=== PATIENT | female | born 1995 | race Native Hawaiian/Other Pacific Islander ===

== ENCOUNTER 2020-08-24 17:24 | Emergency (ER) | payer MEDICARE, MEDICAID, SELFPAY ==
[2020-08-24 17:41] VITALS: BP 141/75; PULSE 92; RESP 18; TEMP 37; O2SAT 98; BMI 41.9
--- NOTE | 2020-08-24 17:46 | DI.RAD.S_ITS ---
PROCEDURE: XR CHEST 1V INDICATIONS: chest pain TECHNIQUE: One view of the chest was acquired. COMPARISON: None. FINDINGS: Surgical changes and devices: None. Lungs and pleura: Lung volumes are decreased bilaterally. Mild streaky bibasilar opacities likely representing atelectasis. No focal consolidation. No pleural effusions or pneumothorax. Mediastinum: Mediastinal contours appear normal. Heart size is normal. Bones and chest wall: No suspicious bony lesions. Overlying soft tissues appear unremarkable. IMPRESSION: Low lung volumes with streaky bibasilar opacities favored to represent atelectasis. Consider dedicated upright PA and lateral views of the chest to confirm when patient is able. Otherwise, no acute cardiopulmonary abnormality seen. No focal consolidations. Dictated by: Emanuel Saenz M.D. on 08/24/2020 at 18:56 Approved by: Emanuel Saenz M.D. on 08/24/2020 at 18:56
[2020-08-24 18:31] LABS: Alanine Aminotransferase 17 IU/L (<35); Albumin 4.2 g/dL (3.5-5.0); Albumin Globulin Ratio 1.2 (1.0-2.8); Alkaline Phosphatase 63 U/L (38-126); Aspartate Aminotransferase 21 IU/L (14-36); BUN Creatinine Ratio 23.3 (6-22); Bilirubin Total 0.3 mg/dL (0.2-1.3); Blood Urea Nitrogen 14 mg/dL (7-17); Calcium 9.4 mg/dL (8.4-10.2); Carbon Dioxide 27 mmol/L (22-32); Chloride 103 mmol/L (98-107); Creatine Kinase 58 U/L (30-135); Estimated Glomerular Filt Rate > 60.0 mL/min (>60); Globulin 3.5 g/dL (1.7-4.1); Glucose 98 mg/dL (70-100); HEMOLYSIS < 15 (0-50); Lipase 73 U/L (23-300); Potassium 3.8 mmol/L (3.4-5.1); Sodium 138 mmol/L (137-145); Total Protein 7.7 g/dL (6.3-8.2)
[2020-08-24 18:42] LABS: Troponin I < 0.012 ng/mL (0.01-0.034)
[2020-08-24 18:47] LABS: Hemoglobin 13.3 g/dL (12.0-16.0); Mean Corpuscular HGB Conc 33.2 % (30-36); Mean Corpuscular Hemoglobin 28.9 PG (26-34); Mean Corpuscular Volume 87.1 fL (80-100); Platelet Count 275 X10^3/uL (150-400); Red Blood Cell Count 4.59 X10^6/uL (4.0-5.2); Red Cell Distribution Width 14.4 % (11.6-14.8)
[2020-08-24 18:48] LABS: Add Manual Diff / Slide Review YES
[2020-08-24 19:18] LABS: Neutrophils Absolute Manual 12600 /uL (3000-5900); Platelet Estimate Adequate on smear; RBC Morphology Normal Morphology; Total Cells Counted 100
[2020-08-24 20:34] VITALS: BP 110/67; PULSE 86; TEMP 36.8; O2SAT 100
[2020-08-24 20:42] LABS: COVID19 -Nasal RAPID Negative (Negative)
--- NOTE | 2020-08-24 20:58 | PC.NURSE ---
Patient with cough, states she had a couple coughs last night but frequency increased this AM at approximately 0400. Received her first covid vaccine shot at 1000 and after developed chest pain. States chest pain is 6/10, aching, midsternal radiating across chest, worsened by cough. Mentioned her daughter recently had pneumonia.
--- NOTE | 2020-08-24 21:11 | ED_ITS ---
HPI - URI/Sore Throat General Chief Complaint: Chest Pain Stated Complaint: not feelling well after Covid Vaccine today Time Seen by Provider: 08/24/20 20:56 Source: patient Mode of arrival: Ambulatory Limitations: no limitations History of Present Illness HPI Narrative: Patient complains of cough cold congestion runny nose reproducible chest pain on coughing starting around 3:00 p.m. today. At noon today she states she had the 1st vaccine for COVID. [employer]. Denies any symptoms prior to the vaccine today. No recent illness otherwise. Complaint: fever, cough, rhinorrhea, nasal congestion and other (Chest pain/body aches fever and chills) Related Data Home Medications Medication Instructions Recorded Confirmed No Known Home Medications 08/24/20 08/24/20 Allergies Allergy/AdvReac Type Severity Reaction Status Date / Time No Known Drug Allergies Allergy Verified 08/24/20 18:03 Review of Systems Review of Systems Narrative: GENERAL: Complaint chills, fatigue, malaise, fever, sweats. HEENT: Complains runny nose and sinus pain, denies ear pain, sore throat RESPIRATORY: Denies dyspnea, complaint cough CARDIOVASCULAR: Denies chest pain, palpitations GASTROINTESTINAL: Denies nausea, vomiting, abdominal pain : Denies dysuria, frequency, hematuria MUSCULOSKELETAL: Complaint muscle or bony pain SKIN: Denies rash, skin lesions NEUROLOGIC: Denies weakness, numbness ROS Unobtainable: All systems reviewed & are unremarkable except as noted in HPI and below Patient History Social History Smoking Status: Unknown if ever smoked Smoking Status: Unknown if ever smoked alcohol intake frequency: holidays/special occasions only Substance Use Type: does not use Exam Narrative Exam Narrative: GENERAL: in no distress, not toxic not dyspneic HEAD: Normocephalic. EYES: Pupils equal round No scleral icterus. No injection no discharge ENT: Mucous membranes moist. NECK: Trachea midline. CARDIOVASCULAR: Regular rate and rhythm without murmurs, chest pain substernal with coughing RESPIRATORY: Clear to auscultation. Breath sounds equal bilaterally. No wheezes, rales, or rhonchi. GASTROINTESTINAL: Abdomen soft, non-tender EXTREMITIES: No gross deformities. BACK: No flank tenderness. NEURO: AOx4. SKIN: Warm and dry PSYCH: Not anxious, is cooperative Initial Vital Signs Initial Vital Signs: Vital Signs Temperature 98.6 F 08/24/20 17:41 Pulse Rate 92 H 08/24/20 17:41 Respiratory Rate 18 08/24/20 17:41 Blood Pressure 141/75 H 08/24/20 17:41 Pulse Oximetry 98 08/24/20 17:41 Course Course Course Narrative: Patient improved during course of stay. No intervention required other than laboratory studies Orders Ordered: ED Orders 08/24/20 19:53 COVID19 -Nasal swab/Pre-Proc Stat Reevaluation(s) Reevaluation #1: Patient feels much better. Desires discharge home. She does not want any further treatment or intervention. She feels much better and desires discharge Time: 23:02 Vital Signs Vital signs: Vital Signs - 8 hr 08/24/20 20:34 08/24/20 23:37 Temperature 98.2 F Pulse Rate 86 88 Respiratory Rate 16 Blood Pressure 110/67 114/70 Pulse Oximetry 100 100 MDM - URI/Sore Throat Differential Diagnosis Differential diagnosis: Likely other (Medication reaction/vaccine reaction) Lab Data Attestation: I reviewed the patient's lab results. Result diagrams: 08/24/20 18:15 08/24/20 18:15 Labs: Lab Results 08/24/20 08/24/20 08/24/20 Range/Units 18:15 18:15 18:15 WBC 15.0 H (4.5-11.0) X10^3/uL RBC 4.59 (4.0-5.2) X10^6/uL Hgb 13.3 (12.0-16.0) g/dL Hct 40.0 (36-46) % MCV 87.1 (80-100) fL MCH 28.9 (26-34) PG MCHC 33.2 (30-36) % RDW 14.4 (11.6-14.8) % Plt Count 275 (150-400) X10^3/uL Neut % (Auto) Not Reportable Lymph % (Auto) Not Reportable Slope % (Auto) Not Reportable Eos % (Auto) Not Reportable Baso % (Auto) Not Reportable Lymph # (Auto) Not Reportable [place] # (Auto) Not Reportable Baso # (Auto) Not Reportable Total Counted 100 Seg Neutrophils % 84.0 H (38-70) % Lymphocytes % (Manual) 11.0 L (25-45) % Monocytes % (Manual) 5.0 (2-11) % Neutrophils # (Manual) 38027 H (4227-9138) /uL Platelet Estimate Adequate on smear RBC Morphology Normal morphology Sodium 138 (137-145) mmol/L Potassium 3.8 (3.4-5.1) mmol/L Chloride 103 (98-107) mmol/L Carbon Dioxide 27 (22-32) mmol/L BUN 14 (7-17) mg/dL Creatinine 0.60 (0.52-1.04) mg/dL Estimated GFR > 60.0 (>60) mL/min BUN/Creatinine Ratio 23.3 H (6-22) Glucose 98 (70-100) mg/dL Calcium 9.4 (8.4-10.2) mg/dL Total Bilirubin 0.3 (0.2-1.3) mg/dL AST 21 (14-36) IU/L ALT 17 (<35) IU/L Alkaline Phosphatase 63 (38-126) U/L Total Creatine Kinase 58 (30-135) U/L CK-MB (CK-2) TNP CK-MB (CK-2) Rel Index TNP Troponin I < 0.012 (0.01-0.034) ng/mL Total Protein 7.7 (6.3-8.2) g/dL Albumin 4.2 (3.5-5.0) g/dL Globulin 3.5 (1.7-4.1) g/dL Albumin/Globulin Ratio 1.2 (1.0-2.8) Lipase 73 (23-300) U/L Serum , Qual Negative (Negative) SARS-CoV-2 (PCR) (Negative) 08/24/20 Range/Units 19:53 WBC (4.5-11.0) X10^3/uL RBC (4.0-5.2) X10^6/uL Hgb (12.0-16.0) g/dL Hct (36-46) % MCV (80-100) fL MCH (26-34) PG MCHC (30-36) % RDW (11.6-14.8) % Plt Count (150-400) X10^3/uL Neut % (Auto) Lymph % (Auto) [place] % (Auto) Eos % (Auto) Baso % (Auto) Lymph # (Auto) [place] # (Auto) Baso # (Auto) Total Counted Seg Neutrophils % (38-70) % Lymphocytes % (Manual) (25-45) % Monocytes % (Manual) (2-11) % Neutrophils # (Manual) (5247-1353) /uL Platelet Estimate RBC Morphology Sodium (137-145) mmol/L Potassium (3.4-5.1) mmol/L Chloride (98-107) mmol/L Carbon Dioxide (22-32) mmol/L BUN (7-17) mg/dL Creatinine (0.52-1.04) mg/dL Estimated GFR (>60) mL/min BUN/Creatinine Ratio (6-22) Glucose (70-100) mg/dL Calcium (8.4-10.2) mg/dL Total Bilirubin (0.2-1.3) mg/dL AST (14-36) IU/L ALT (<35) IU/L Alkaline Phosphatase (38-126) U/L Total Creatine Kinase (30-135) U/L CK-MB (CK-2) CK-MB (CK-2) Rel Index Troponin I (0.01-0.034) ng/mL Total Protein (6.3-8.2) g/dL Albumin (3.5-5.0) g/dL Globulin (1.7-4.1) g/dL Albumin/Globulin Ratio (1.0-2.8) Lipase (23-300) U/L Serum , Qual (Negative) SARS-CoV-2 (PCR) Negative (Negative) Imaging Data Chest x-ray: Radiologist's Impression: [address] [id number] ReportSigned Patient: Jose Epstein EMR#: [id number]: 1995Acct:[id number]/Sex: 25 / FDate of Service: 08/24/20Loc: EDAccession Number: [id number] Procedure: XR chest 1V Ordering Provider: Armaan Hsu D.O. PROCEDURE: XR CHEST 1V INDICATIONS: chest pain TECHNIQUE: One view of the chest was acquired. COMPARISON: None. FINDINGS: Surgical changes and devices: None. Lungs and pleura: Lung volumes are decreased bilaterally. Mild streaky bibasilar opacities likely representing atelectasis. No focal consolidation. No pleural effusions or pneumothorax. Mediastinum: Mediastinal contours appear normal. Heart size is normal. Bones and chest wall: No suspicious bony lesions. Overlying soft tissues appear unremarkable. IMPRESSION: Low lung volumes with streaky bibasilar opacities favored to represent atelectasis. Consider dedicated upright PA and lateral views of the chest to confirm when patient is able. Otherwise, no acute cardiopulmonary abnormality seen. No focal consolidations. Dictated by: Emanuel Saenz M.D. on 08/24/2020 at 18:56 Approved by: Emanuel Saenz M.D. on 08/24/2020 at 18:56 ECG Data Attestation: I personally reviewed and interpreted this ECG as follows: Interpretation: Normal sinus rhythm rate [address] elevation or depression MDM Narrative Medical decision making narrative: Appropriate for discharge home. Laboratory studies as well as exam reassuring. Reactions to vaccines not uncommon during this pandemic. Discharge Plan Departure Patient Disposition: Home Clinical Impression: Post-vaccination reaction Qualifiers: Encounter type: initial encounter Qualified Code(s): T88.1XXA - Other complic ations following immunization, not elsewhere classified, initial encounter Instructions: Acetaminophen May Reduce Vaccination Response Activity Restrictions/Additional Instructions: Return if worse if any questions concerns. See family doctor in a week for recheck. May continue ibuprofen or Tylenol for pain aches fevers chills. Call provided referral phone number if he needed family doctor. Prescriptions: No Action No Known Home Medications RF: 0 Referrals: [facility] Resources [Outside] Stand Alone Forms: Work Release Note
[2020-08-24 21:22] LABS: Pregnancy Test Serum,Qual Negative (Negative)
[2020-08-24 23:37] VITALS: BP 114/70; PULSE 88; RESP 16; O2SAT 100
== END 2020-08-24 23:38 | disposition home or self-care (01) ==
PROVIDERS: Emergency Medicine; Emergency Provider Emergency Medicine
DX: R07.9 Chest pain, unspecified (principal); R50.9 Fever, unspecified; Z20.822 Contact with and (suspected) exposure to COVID-19; T88.1XXA Other complications following immunization, not elsewhere classified, initial encounter
CPT/HCPCS: 36415; 71045; 80053; 82550; 83690; 84484; 84703; 85007; 85025; 87635; 93005; 99283; 99284; C9803

== ENCOUNTER 2020-08-25 22:23 | Emergency (ER) | payer MEDICARE, MEDICAID, SELFPAY ==
--- NOTE | 2020-08-25 22:27 | ED_ITS ---
HPI - Abdominal Pain General Chief Complaint: Abdominal Pain Stated Complaint: abd pain Time Seen by Provider: 08/25/20 22:27 Source: patient and family Mode of arrival: Ambulatory Limitations: no limitations History of Present Illness HPI narrative: 25-year-old female nonsmoker with no chronic medical problems presents with family in the chief complaint of gradually worsening periumbilical pain over the course of the day. She states it is sharp and stabbing it seems to be made worse when she moves and improves with rest. She denies any fever or chills. She denies any vaginal bleeding or discharge. She denies any dysuria, frequency or urgency. She denies constipation or diarrhea. She states that she just had her COVID vaccination and was seen earlier in the day for symptoms thought to be related to this vaccination. MD complaint: abdominal pain Onset (ago): hour(s) Pain Consistency: constant Location: periumbilical Severity: moderate Quality: stabbing and sharp Radiation: none Relieving factors: rest Exacerbating factors: movement Associated symptoms: nausea and vomiting Related Data Patient : No Previous Rx's Medication Instructions Recorded hydrocodone-acetaminophen 1 tab PO Q4-6H PRN #10 tab 08/26/20 ondansetron 4 mg PO TID-QID PRN #10 tab 08/26/20 Allergies Allergy/AdvReac Type Severity Reaction Status Date / Time No Known Drug Allergies Allergy Verified 08/24/20 18:03 Review of Systems Constitutional Constitutional: Denies chills, Denies fatigue, Denies fever(s), Denies frequent falls, Denies lethargy and Denies weakness Eyes Eyes: Denies change in vision, Denies eye discharge, Denies irritation and Denies loss of vision ENT Ears, Nose, Mouth, and Throat: Denies change in voice, Denies dizziness, Denies neck pain, Denies sore throat and Denies throat swelling Cardiovascular Cardiovascular: Denies chest pain, Denies irregular heart rhythm, Denies lightheadedness, Denies palpitations, Denies dyspnea, Denies dyspnea on exertion and Denies orthopnea Respiratory Respiratory: Denies cough, Denies dyspnea, Denies dyspnea on exertion and Denies wheezing Gastrointestinal Gastrointestinal: Reports abdominal pain, Denies change in bowel habits, Denies diarrhea, Reports nausea and Reports vomiting Musculoskeletal Musculoskeletal: Denies neck pain and Denies numbness Integumentary/Breasts Skin/Breast: Denies pruritus, Denies erythema, Denies rash and Denies wounds Neurologic Neurologic: Denies behavioral changes, Denies confusion, Denies dizziness, Den ies frequent falls, Denies loss of vision, Denies numbness and Denies weakness Psychiatric Psychiatric: Denies anxiety, Denies behavioral changes, Denies confusion, Denies depression, Denies homicidal ideation and Denies suicidal ideation Endocrine Endocrine: Denies fatigue, Denies flushing and Denies palpitations Hematologic/Lymphatic Hematologic/Lymphatic: Denies easy bruising Allergic/Immunologic Allergic/Immunologic: Denies urticaria, Denies throat swelling and Denies wheezing Patient History Social History Smoking Status: Unknown if ever smoked Smoking Status: Unknown if ever smoked alcohol intake frequency: holidays/special occasions only Substance Use Type: does not use Exam Narrative Exam Narrative: GENERAL: [25] year old patient appears stated age. Well- nourished, well-developed patient, in mild distress. Tearful, crying, anxious HEAD: Atraumatic. Normocephalic. EYES: Pupils equal round and reactive. Extraocular motions intact. No scleral icterus. No injection or drainage. ENT: Nose without bleeding, purulent drainage. Throat without erythema, tonsillar hypertrophy or exudate. Airway patent. NECK: Trachea midline. Non tender CARDIOVASCULAR: Regular rate and rhythm without murmurs, gallops, or rubs. RESPIRATORY: Clear to auscultation. Breath sounds equal bilaterally. No wheezes, rales, or rhonchi. GASTROINTESTINAL: Abdomen soft, general tenderness, nondistended. Bowel sounds present EXTREMITIES: No edema or joint tenderness. BACK: Nontender without deformity or crepitance. No flank tenderness. NEURO: AOx3. SKIN: No rash or erythema of visible areas Initial Vital Signs Initial Vital Signs: Vital Signs Temperature 97.8 F 08/25/20 22:34 Pulse Rate 89 08/25/20 22:34 Respiratory Rate 24 08/25/20 22:34 Blood Pressure 138/85 08/25/20 22:34 Pulse Oximetry 99 08/25/20 22:34 Course Orders Ordered: ED Orders 08/25/20 22:40 Complete Blood Count AUTO DIFF Stat Comprehensive Metabolic Panel Stat Lipase Stat 08/25/20 23:41 CT abdomen pelvis w con Stat Discontinued Medications Hydrocodone Bitart/Acetaminophen (Hydrocodone/Acet 5/325 Prepack) 1 bottle MISC SEEINSTR ONE Stop: 08/26/20 01:13 Last Admin: 08/26/20 01:39 Dose: 1 bottle Documented by: ARNAV Hydromorphone HCl (Hydromorphone 0.5 Mg Inj) 0.5 mg IV NOW ONE Stop: 08/25/20 22:34 Last Admin: 08/25/20 22:47 Dose: 0.5 mg Documented by: ARNAV Sodium Chloride (Normal Saline 0.9%) 1,000 mls @ 1,000 mls/hr IV BOLUS ONE Stop: 08/25/20 23:32 Last Infusion: 08/26/20 01:01 Dose: 0 mls/hr Documented by: Admin: 08/25/20 22:47 Dose: 1,000 mls/hr Documented by: ARNAV Ondansetron HCl (Ondansetron 4 Mg/2 Ml Inj) 4 mg IV Q4HR PRN PRN Reason: Nausea And Vomiting Last Admin: 08/25/20 22:47 Dose: 4 mg Documented by: ARNAV Ondansetron HCl (Ondansetron 4 Mg Odt Prepack) 1 bottle [facility] [place] Stop: 08/26/20 01:13 Last Admin: 08/26/20 01:39 Dose: 1 bottle Documented by: ARNAV Reevaluation(s) Reevaluation #1: patient resting and completely pain free soon after arrival Consultations Consultation #1: Discussed with on-call surgery. We talked about history, physical exam, labs and imaging. We share the opinion that she likely passed a stone given her presentation, subtle change in labs and what is seen on the CT scan. He recommends discharge, pain control, follow-up, and return precautions Vital Signs Vital signs: Vital Signs - 8 hr 08/25/20 22:34 08/26/20 01:41 Temperature 97.8 F Pulse Rate 89 64 Respiratory Rate 24 20 Blood Pressure 138/85 151/84 H Pulse Oximetry 99 99 MDM - Abdominal Pain Lab Data Result diagrams: 08/25/20 22:40 08/25/20 22:40 Labs: Lab Results 08/25/20 08/25/20 Range/Units 22:40 22:40 WBC 11.3 H (4.5-11.0) X10^3/uL RBC 4.76 (4.0-5.2) X10^6/uL Hgb 13.5 (12.0-16.0) g/dL Hct 41.2 (36-46) % MCV 86.5 (80-100) fL MCH 28.3 (26-34) PG MCHC 32.7 (30-36) % RDW 14.3 (11.6-14.8) % Plt Count 257 (150-400) X10^3/uL Neut % (Auto) 78.5 H (50-75) % Lymph % (Auto) 9.7 L (25-40) % [place] % (Auto) 10.6 (3-14) % Eos % (Auto) 0.9 L (2-4) % Baso % (Auto) 0.3 (0-2) % Neut # (Auto) 8900 H (9140-1896) /uL Lymph # (Auto) 1100 (0486-1031) /uL [place] # (Auto) 1200 H (0-900) /uL Eos # (Auto) 100 (0-450) /uL Baso # (Auto) 0 (0-100) /uL Sodium 138 (137-145) mmol/L Potassium 3.7 (3.4-5.1) mmol/L Chloride 105 (98-107) mmol/L Carbon Dioxide 25 (22-32) mmol/L BUN 14 (7-17) mg/dL Creatinine 0.62 (0.52-1.04) mg/dL Estimated GFR > 60.0 (>60) mL/min BUN/Creatinine Ratio 22.6 H (6-22) Glucose 107 H (70-100) mg/dL Calcium 9.1 (8.4-10.2) mg/dL Total Bilirubin 0.7 (0.2-1.3) mg/dL AST 182 H (14-36) IU/L ALT 68 H (<35) IU/L Alkaline Phosphatase 97 (38-126) U/L Total Protein 7.6 (6.3-8.2) g/dL Albumin 4.1 (3.5-5.0) g/dL Globulin 3.5 (1.7-4.1) g/dL Albumin/Globulin Ratio 1.2 (1.0-2.8) Lipase 112 D (23-300) U/L Point of care testing: Point of Care Testing Test Results Negative Urine Dip Bedside Urine Glucose Negative Bedside Urine Bilirubin + 1 Bedside Urine Ketone - Negative Urine Specific Lottie 1.030 Bedside Urine Occult Blood - Negative Bedside Urine pH 6.0 Bedside Urine Protein - Negative Bedside Urine Urobilinogen 1+ 2mg Bedside Urine Nitrite - Negative Bedside Urine Leukocytes - Negative Esterase Discharge Plan Departure Patient Disposition: Home Clinical Impression: Acute epigastric pain Instructions: DI for General Gallbladder Conditions Activity Restrictions/Additional Instructions: *You have been diagnosed with [upper abdominal pain, likely due to your gallbladder. Labs and imaging would suggest that you are okay for discharge but will need to follow closely *What to do: *Please continue to take your regular medications as directed. [x ] New medication prescriptions sent to your pharmacy: [[facility]] [ ] New medication written as a paper prescription [ ] No new medications given Avoid alcohol, spicy foods, fatty foods and dairy products. *Please follow up with your primary care provider in 2-3 days, call for an appointment. Let them know you were seen in the Emergency Department and that we ask that you be seen in follow up. We will electronically transmit a record of today's note if your PCP is in our system *If you do not have a primary care provider please contact the [facility] Resource line at [phone]. They will ask some questions about your medical history and help get you set up with a doctor in the community. *Return to Emergency Department if you should have any new, worsening or concerning symptoms, such as [fever greater than 101 F, shaking chills, worsening pain, persistent vomiting or other bothersome symptoms] Prescriptions: New hydrocodone-acetaminophen 5-325 mg tablet 1 tab PO Q4-6H PRN (Reason: pain) Qty: 10 RF: 0 ondansetron 4 mg tablet,disintegrating 4 mg PO TID-QID PRN (Reason: nausea and vomiting) Qty: 10 RF: 0 Referrals: Renzo Adams MD [Physician] -
[2020-08-25 22:34] VITALS: BP 138/85; PULSE 89; RESP 24; TEMP 36.6; O2SAT 99; BMI 42.4
[2020-08-25] MEDS: SODIUM CHLORIDE 0.9% 1,000 ML 1000 ML IV (22:47)
[2020-08-25] MEDS: HYDROMORPHONE 0.5 MG INJ IV (22:47)
[2020-08-25] MEDS: ONDANSETRON 4 MG/2 ML INJ IV (22:47)
[2020-08-25 22:59] LABS: Add Manual Diff / Slide Review NO; Basophils Absolute Auto 0 /uL (0-100); Basophils Percent Auto 0.3 % (0-2); Eosinophils Absolute Auto 100 /uL (0-450); Eosinophils Percent Auto 0.9 % (2-4); Hematocrit 41.2 % (36-46); Hemoglobin 13.5 g/dL (12.0-16.0); Lymphocytes Absolute Auto 1100 /uL (1100-4500); Lymphocytes Percent Auto 9.7 % (25-40); Mean Corpuscular HGB Conc 32.7 % (30-36); Mean Corpuscular Hemoglobin 28.3 PG (26-34); Mean Corpuscular Volume 86.5 fL (80-100); Monocytes Absolute Auto 1200 /uL (0-900); Monocytes Percent Auto 10.6 % (3-14); Neutrophils Absolute Auto 8900 /uL (1500-7000); Neutrophils Percent Auto 78.5 % (50-75); Platelet Count 257 X10^3/uL (150-400); Red Blood Cell Count 4.76 X10^6/uL (4.0-5.2); Red Cell Distribution Width 14.3 % (11.6-14.8); White Blood Cell Count 11.3 X10^3/uL (4.5-11.0)
[2020-08-25 23:03] LABS: Alanine Aminotransferase 68 IU/L (<35); Albumin 4.1 g/dL (3.5-5.0); Albumin Globulin Ratio 1.2 (1.0-2.8); Alkaline Phosphatase 97 U/L (38-126); Aspartate Aminotransferase 182 IU/L (14-36); BUN Creatinine Ratio 22.6 (6-22); Bilirubin Total 0.7 mg/dL (0.2-1.3); Blood Urea Nitrogen 14 mg/dL (7-17); Calcium 9.1 mg/dL (8.4-10.2); Carbon Dioxide 25 mmol/L (22-32); Chloride 105 mmol/L (98-107); Estimated Glomerular Filt Rate > 60.0 mL/min (>60); Globulin 3.5 g/dL (1.7-4.1); Glucose 107 mg/dL (70-100); HEMOLYSIS < 15 (0-50); Lipase 112 U/L (23-300); Potassium 3.7 mmol/L (3.4-5.1); Sodium 138 mmol/L (137-145); Total Protein 7.6 g/dL (6.3-8.2)
--- NOTE | 2020-08-25 23:41 | DI.CT.S_ITS ---
PROCEDURE: CT ABDOMEN PELVIS W CON INDICATIONS: severe abdominal pain TECHNIQUE: After the administration of intravenous contrast, 5 mm thick sections acquired from the diaphragm to the symphysis. 5 mm coronal and sagittal reformats were acquired. For radiation dose reduction, the following was used: automated exposure control, adjustment of mA and/or kV according to patient size. COMPARISON: None. FINDINGS: Image quality: Excellent. ABDOMEN: Lung bases: Lung bases are clear. Heart size is normal. Solid organs: Liver is normal in size and enhancement. Gallbladder is distended with mild dilatation of the common bile duct. No CT evidence for obstructing stone or mass. No significant pericholecystic inflammatory changes.. Remainder of the biliary system is non dilated. Pancreas enhances normally. Spleen is normal in size and enhancement. No adrenal nodules. Kidneys demonstrate normal size and enhancement, without hydronephrosis. Peritoneum and bowel: Bowel loops demonstrate normal wall thickness and caliber. No free fluid or air. Normal appendix Nodes and vessels: No retroperitoneal or mesenteric adenopathy by size criteria. Aorta and inferior vena cava are normal in size. Miscellaneous: Small fat containing umbilical hernia without acute inflammation. PELVIS: Genitourinary: Urinary bladder wall thickness appears normal for degree of distension. Miscellaneous: No inguinal hernias. No pelvic adenopathy. Bones: No suspicious bony lesions. No acute vertebral body compression fractures. IMPRESSION: Mild distention of the gallbladder with prominence of the common bile duct. No evidence for obstructing stone or mass lesion. Further evaluation with ultrasound can be considered. Otherwise, unremarkable CT evaluation of the abdomen and pelvis. No significant discrepancy with the slot shift manager radiology preliminary report. Dictated by: Emanuel Saenz M.D. on 08/26/2020 at 7:15 Approved by: Emanuel Saenz M.D. on 08/26/2020 at 7:19
[2020-08-26] MEDS: ONDANSETRON 4 MG ODT PREPACK 1 BOTTLE MISC (01:39)
[2020-08-26] MEDS: HYDROCODONE/ACET 5/325 PREPACK 1 BOTTLE MISC (01:39)
[2020-08-26 01:41] VITALS: BP 151/84; PULSE 64; RESP 20; O2SAT 99
== END 2020-08-26 01:43 | disposition home or self-care (01) ==
PROVIDERS: Emergency Provider Emergency Medicine
DX: R10.13 Epigastric pain (principal); R11.2 Nausea with vomiting, unspecified
CPT/HCPCS: 36415; 74177; 80053; 81003; 81025; 83690; 85025; 96361; 96374; 96375; 99284; J1170; J2405; Q9967

== ENCOUNTER 2020-10-05 17:34 | Emergency (ER) | payer OTHER, MEDICAID, SELFPAY ==
[2020-10-05 17:35] VITALS: BP 171/88; PULSE 76; RESP 16; TEMP 36.7; O2SAT 98; BMI 40.3
[2020-10-05 18:18] LABS: COVID19 -Nasal RAPID Negative (Negative)
--- NOTE | 2020-10-05 18:43 | ED.SOB ---
HPI - SOB/Dyspnea General Chief Complaint: Shortness of Breath/Dyspnea Stated Complaint: headaches for 3 days, short of breath Time Seen by Provider: 10/05/20 18:03 Source: patient Mode of arrival: Ambulatory Limitations: no limitations History of Present Illness HPI Narrative: 25-year-old female nonsmoker with noncontributory medical history presents with episodes of headaches over the past few weeks. she states that her headaches are largely frontal, sharp and stabbing, seem to be made worse by motion as well as bright lights and loud noise. She has had no fever chills but does admit to significant nasal congestion, sneezing. She has had no fever chills. She denies any neck pain or body aches. She denies any chest pain or shortness of breath. She has had no nausea, vomiting or diarrhea. Related Data Previous Rx's Medication Instructions Recorded hydrocodone 5 mg-acetaminophen 325 1 tab PO Q4-6H PRN #10 tab 08/26/20 mg tablet ondansetron 4 mg disintegrating 4 mg PO TID-QID PRN #10 tab 08/26/20 tablet hydrocodone 5 mg-acetaminophen 325 1 tab PO Q6H PRN #10 tab 08/30/20 mg tablet ketorolac 10 mg tablet 10 mg PO Q6H PRN #14 tab 10/05/20 Allergies Allergy/AdvReac Type Severity Reaction Status Date / Time No Known Drug Allergies Allergy Verified 10/05/20 17:46 Review of Systems Review of Systems Narrative: GENERAL: See HPI HEENT: Denies sinus pain, ear pain, sore throat, difficulty swallowing, dizziness. RESPIRATORY: Denies dyspnea, cough, wheezing, hemoptysis, sputum. CARDIOVASCULAR: Denies chest pain, palpitations, orthopnea, edema, GASTROINTESTINAL: Denies nausea, vomiting, abdominal pain, diarrhea, constipation, melena. : Denies dysuria, frequency, incontinence, hematuria, urinary retention. MUSCULOSKELETAL: denies weakness, joint pain, or bony pain SKIN: Denies rash, skin lesions, or other NEUROLOGIC: Denies weakness, headache, numbness, change in speech, confusion, seizures, incoordination. PSYCHIATRIC: No concerning psychosocial issues. 12 point review of systems is negative except for those stated above Patient History Social History Smoking Status: Unknown if ever smoked Smoking Status: Unknown if ever smoked alcohol intake frequency: holidays/special occasions only Substance Use Type: marijuana Exam Narrative Exam Narrative: GENERAL: [25] year old patient appears stated age. Well-developed patient, in mild distress. HEAD: Atraumatic. Normocephalic. Frontal sinuses tender to palpation, no change with transillumination EYES: Pupils equal round and reactive. Extraocular motions intact. No scleral icterus. No injection or drainage. ENT: Nose without bleeding, purulent drainage. Throat without erythema, tonsillar hypertrophy or exudate. Airway patent. NECK: Trachea midline. Non tender. No meningeal signs CARDIOVASCULAR: Regular rate and rhythm without murmurs, gallops, or rubs. RESPIRATORY: Clear to auscultation. Breath sounds equal bilaterally. No wheezes, rales, or rhonchi. GASTROINTESTINAL: Abdomen soft, non-tender, nondistended. EXTREMITIES: No edema or joint tenderness. BACK: Nontender without deformity or crepitance. No flank tenderness. NEURO: AOx3. SKIN: No rash or erythema of visible areas Initial Vital Signs Initial Vital Signs: Vital Signs Temperature 98.1 F 10/05/20 17:35 Pulse Rate 76 10/05/20 17:35 Respiratory Rate 16 10/05/20 17:35 Blood Pressure 171/88 H 10/05/20 17:35 Pulse Oximetry 98 10/05/20 17:35 Course Orders Ordered: ED Orders 10/05/20 18:41 Complete Blood Count AUTO DIFF Stat Comprehensive Metabolic Panel Stat Lactate (Lactic Acid) Stat Magnesium Stat NT-proBNP (BNP-Adult 18+) Stat Procalcitonin Stat Troponin & CK Cardiac Panel Stat 10/05/20 18:43 Consult to Respiratory Therapy Evaluate & Treat 10/05/20 18:44 XR chest 1V Stat 10/05/20 18:51 D Dimer Stat 10/05/20 19:19 Blood Culture Stat 10/05/20 19:20 EKG-12 Lead Stat Discontinued Medications Dexamethasone (Dexamethasone 10 Mg/Ml Vial) 10 mg IV NOW ONE Stop: 10/05/20 19:14 Last Admin: 10/05/20 20:26 Dose: 10 mg Documented by: [email or web address] Diphenhydramine HCl (Diphenhydramine 50 Mg/Ml Vial) 25 mg IV NOW ONE Stop: 10/05/20 19:14 Last Admin: 10/05/20 20:27 Dose: 25 mg Documented by: [email or web address] Sodium Chloride (Normal Saline 0.9%) 1,000 mls @ 1,000 mls/hr IV BOLUS ONE Stop: 10/05/20 19:42 Last Infusion: 10/05/20 20:55 Dose: 0 mls/hr Documented by: Admin: 10/05/20 18:54 Dose: 1,000 mls/hr Documented by: KAYKAY Ketorolac Tromethamine (Ketorolac 30 Mg/Ml Vial) 15 mg IV NOW ONE Stop: 10/05/20 19:14 Last Admin: 10/05/20 20:27 Dose: 15 mg Documented by: CTRLAMAR Vital Signs Vital signs: Vital Signs - 8 hr 10/05/20 20:54 Pulse Rate 77 Respiratory Rate 16 Blood Pressure 142/78 H Pulse Oximetry 97 MDM - SOB/Dyspnea Lab Data Result diagrams: 10/05/20 18:41 10/05/20 18:41 Labs: Lab Results 10/05/20 10/05/20 10/05/20 Range/Units 17:39 18:41 18:41 WBC 7.9 (4.5-11.0) X10^3/uL RBC 4.67 (4.0-5.2) X10^6/uL Hgb 13.5 (12.0-16.0) g/dL Hct 41.0 (36-46) % MCV 87.8 (80-100) fL MCH 28.8 (26-34) PG MCHC 32.8 (30-36) % RDW 13.7 (11.6-14.8) % Plt Count 279 (150-400) X10^3/uL Neut % (Auto) 66.5 (50-75) % Lymph % (Auto) 26.1 (25-40) % [place] % (Auto) 5.8 (3-14) % Eos % (Auto) 1.1 L (2-4) % Baso % (Auto) 0.5 (0-2) % Neut # (Auto) 5200 (5972-0834) /uL Lymph # (Auto) 2100 (0492-6371) /uL [place] # (Auto) 500 (0-900) /uL Eos # (Auto) 100 (0-450) /uL Baso # (Auto) 0 (0-100) /uL D-Dimer (<230) ng/mL Sodium (137-145) mmol/L Potassium (3.4-5.1) mmol/L Chloride (98-107) mmol/L Carbon Dioxide (22-32) mmol/L BUN (7-17) mg/dL Creatinine (0.52-1.04) mg/dL Estimated GFR (>60) mL/min BUN/Creatinine Ratio (6-22) Glucose (70-100) mg/dL Lactate (0.7-2.1) mmol/L Calcium (8.4-10.2) mg/dL Magnesium 2.0 (1.6-2.3) mg/dL Total Bilirubin (0.2-1.3) mg/dL AST (14-36) IU/L ALT (<35) IU/L Alkaline Phosphatase (38-126) U/L Total Creatine Kinase 53 (30-135) U/L CK-MB (CK-2) TNP CK-MB (CK-2) Rel Index TNP Troponin I < 0.012 (0.01-0.034) ng/mL NT-Pro-B Natriuret Pep 76 (<125) pg/mL Total Protein (6.3-8.2) g/dL Albumin (3.5-5.0) g/dL Globulin (1.7-4.1) g/dL Albumin/Globulin Ratio (1.0-2.8) Procalcitonin 0.04 (<0.5) ng/mL SARS-CoV-2 (PCR) Negative (Negative) 10/05/20 10/05/20 10/05/20 Range/Units 18:41 18:41 18:51 WBC (4.5-11.0) X10^3/uL RBC (4.0-5.2) X10^6/uL Hgb (12.0-16.0) g/dL Hct (36-46) % MCV (80-100) fL MCH (26-34) PG MCHC (30-36) % RDW (11.6-14.8) % Plt Count (150-400) X10^3/uL Neut % (Auto) (50-75) % Lymph % (Auto) (25-40) % [place] % (Auto) (3-14) % Eos % (Auto) (2-4) % Baso % (Auto) (0-2) % Neut # (Auto) (4428-6338) /uL Lymph # (Auto) (6334-3747) /uL [place] # (Auto) (0-900) /uL Eos # (Auto) (0-450) /uL Baso # (Auto) (0-100) /uL D-Dimer 307 H (<230) ng/mL Sodium 139 (137-145) mmol/L Potassium 3.8 (3.4-5.1) mmol/L Chloride 106 (98-107) mmol/L Carbon Dioxide 26 (22-32) mmol/L BUN 13 (7-17) mg/dL Creatinine 0.64 (0.52-1.04) mg/dL Estimated GFR > 60.0 (>60) mL/min BUN/Creatinine Ratio 20.3 (6-22) Glucose 102 H (70-100) mg/dL Lactate 0.8 (0.7-2.1) mmol/L Calcium 8.9 (8.4-10.2) mg/dL Magnesium (1.6-2.3) mg/dL Total Bilirubin 0.3 (0.2-1.3) mg/dL AST 24 (14-36) IU/L ALT 17 (<35) IU/L Alkaline Phosphatase 69 (38-126) U/L Total Creatine Kinase (30-135) U/L CK-MB (CK-2) CK-MB (CK-2) Rel Index Troponin I (0.01-0.034) ng/mL NT-Pro-B Natriuret Pep (<125) pg/mL Total Protein 7.2 (6.3-8.2) g/dL Albumin 4.0 (3.5-5.0) g/dL Globulin 3.2 (1.7-4.1) g/dL Albumin/Globulin Ratio 1.3 (1.0-2.8) Procalcitonin (<0.5) ng/mL SARS-CoV-2 (PCR) (Negative) Imaging Data Chest x-ray: Radiologist's Impression: Chart Viewer Diagnostics DATE TYPE STATUS REF RANGE/AUTHOR Hx 10/05/20 18:44 Reid Main 08/25/20 23:41 Emanuel Saenz 08/24/20 17:46 Emanuel Saenz 25, F004[birth year][address] [facility] ED 167.64cm 113.398kg BMI: 40.4kg/m? Shortness of Breath/Dyspnea Search Chart No Data to Display Total Pending Discharge ONSET 10/05/20 20:54 Jose Epstein E 25 F [address] [id number] ReportSigned Patient: Jose Epstein EMR#: [id number]: 1995Acct:[id number]/Sex: 25 / FDate of Service: 10/05/20Loc: EDAccession Number: [id number] Procedure: XR chest 1V Ordering Provider: Vito Madrid D.O. PROCEDURE: XR CHEST 1V INDICATIONS: dyspnea TECHNIQUE: One view of the chest was acquired. COMPARISON: [facility], , XR CHEST 1V, 08/24/2020, 17:52. FINDINGS: Surgical changes and devices: None. Lungs and pleura: Lungs are clear. No pleural effusions or pneumothorax. Mediastinum: Mediastinal contours appear normal. Heart size is normal. Bones and chest wall: No suspicious bony lesions. Overlying soft tissues appear unremarkable. IMPRESSION: 1. No acute cardiopulmonary disease. Dictated by: Reid Main M.D. on 10/05/2020 at 19:00 Approved by: Reid Main M.D. on 10/05/2020 at 19:01 [facility] Narrative Medical decision making narrative: Headache considerations include, but not limited to: Subarachnoid hemorrhage, but unlikely as patient denies sudden onset of pain, not worst of life, or neck pain Meningitis considered, but thought unlikely given lack of Brudzinski's, Kernig's sign, altered mental status or fever Giant cell arteritis considered, but thought unlikely given lack of unilateral findings, pain in spiritism, vision change HTN Emergency considered, but thought unlikely given normal vitals Other serious diagnoses considered unlikely given lack of red flag findings such as sudden onset, increasing frequency, immunocompromise, systemic signs (fever, chills, stiff neck, or rash), focal neurologic findings, trauma, blood thinners, etc. Discharge Plan Departure Patient Disposition: Home Clinical Impression: Sinus headache Instructions: DI for Sinus Headache Activity Restrictions/Additional Instructions: *You have been diagnosed with [headache, likely sinus. Your exam, labs and imaging are very reassuring] *What to do: *Please continue to take your regular medications as directed. [ x] New medication prescriptions sent to your pharmacy: [[facility]] also please consider [id number] medications such as antihistamines (Benadryl, Zyrtec, Aleena) and decongestant such as phenylephrine or Sudafed. [ ] New medication written as a paper prescription [ ] No new medications given *Please follow up with your primary care provider in 2-3 days, call for an appointment. Let them know you were seen in the Emergency Department and that we ask that you be seen in follow up. We will electronically transmit a record of today's note if your PCP is in our system *If you do not have a primary care provider please contact the [facility] Resource line at [phone]. They will ask some questions about your medical history and help get you set up with a doctor in the community. *Return to Emergency Department if you should have any new, worsening or concerning symptoms, such as [fever greater than 101 F, shaking chills, worsening pain, persistent vomiting or other bothersome symptoms] Prescriptions: New ketorolac 10 mg tablet 10 mg PO Q6H PRN (Reason: pain) Qty: 14 RF: 0 No Action hydrocodone-acetaminophen 5-325 mg tablet 1 tab PO Q4-6H PRN (Reason: pain) Qty: 10 RF: 0 ondansetron 4 mg tablet,disintegrating 4 mg PO TID-QID PRN (Reason: nausea and vomiting) Qty: 10 RF: 0 hydrocodone-acetaminophen 5-325 mg tablet 1 tab PO Q6H PRN (Reason: pain) Qty: 10 RF: 0
[2020-10-05] MEDS: SODIUM CHLORIDE 0.9% 1,000 ML 1000 ML IV (18:54)
[2020-10-05 19:04] LABS: Add Manual Diff / Slide Review NO; Basophils Absolute Auto 0 /uL (0-100); Basophils Percent Auto 0.5 % (0-2); Eosinophils Absolute Auto 100 /uL (0-450); Eosinophils Percent Auto 1.1 % (2-4); Hemoglobin 13.5 g/dL (12.0-16.0); Lymphocytes Absolute Auto 2100 /uL (1100-4500); Lymphocytes Percent Auto 26.1 % (25-40); Mean Corpuscular HGB Conc 32.8 % (30-36); Mean Corpuscular Hemoglobin 28.8 PG (26-34); Mean Corpuscular Volume 87.8 fL (80-100); Monocytes Absolute Auto 500 /uL (0-900); Monocytes Percent Auto 5.8 % (3-14); Neutrophils Absolute Auto 5200 /uL (1500-7000); Neutrophils Percent Auto 66.5 % (50-75); Platelet Count 279 X10^3/uL (150-400); Red Blood Cell Count 4.67 X10^6/uL (4.0-5.2); Red Cell Distribution Width 13.7 % (11.6-14.8); White Blood Cell Count 7.9 X10^3/uL (4.5-11.0)
[2020-10-05 19:42] LABS: Creatine Kinase 53 U/L (30-135)
[2020-10-05 19:43] LABS: Alanine Aminotransferase 17 IU/L (<35); Albumin Globulin Ratio 1.3 (1.0-2.8); Alkaline Phosphatase 69 U/L (38-126); Aspartate Aminotransferase 24 IU/L (14-36); BUN Creatinine Ratio 20.3 (6-22); Bilirubin Total 0.3 mg/dL (0.2-1.3); Blood Urea Nitrogen 13 mg/dL (7-17); Calcium 8.9 mg/dL (8.4-10.2); Carbon Dioxide 26 mmol/L (22-32); Chloride 106 mmol/L (98-107); Estimated Glomerular Filt Rate > 60.0 mL/min (>60); Globulin 3.2 g/dL (1.7-4.1); Glucose 102 mg/dL (70-100); HEMOLYSIS < 15 (0-50); Potassium 3.8 mmol/L (3.4-5.1); Sodium 139 mmol/L (137-145); Total Protein 7.2 g/dL (6.3-8.2)
[2020-10-05 19:44] LABS: Lactate (Lactic Acid) 0.8 mmol/L (0.7-2.1)
[2020-10-05 19:46] LABS: D Dimer 307 ng/mL (<230)
[2020-10-05 19:55] LABS: NT-proBNP (BNP-Adult 18+) 76 pg/mL (<125); Troponin I < 0.012 ng/mL (0.01-0.034)
[2020-10-05 19:59] LABS: Procalcitonin 0.04 ng/mL (<0.5)
[2020-10-05] MEDS: DEXAMETHASONE 10 MG/ML VIAL IV (20:26)
[2020-10-05] MEDS: KETOROLAC 30 MG/ML VIAL 15 MG IV (20:27)
[2020-10-05] MEDS: diphenhydrAMINE 50 MG/ML VIAL 25 MG IV (20:27)
[2020-10-05 20:54] VITALS: BP 142/78; PULSE 77; RESP 16; O2SAT 97
== END 2020-10-05 20:55 | disposition home or self-care (01) ==
PROVIDERS: Emergency Medicine; Emergency Provider Emergency Medicine
DX: R51.9 Headache, unspecified (principal); R09.81 Nasal congestion; R06.00 Dyspnea, unspecified; Z20.822 Contact with and (suspected) exposure to COVID-19
CPT/HCPCS: 36415; 71045; 80053; 82550; 83605; 83735; 83880; 84145; 84484; 85025; 85379; 87040; 87635; 93005; 93010; 96361; 96374; 96375; 99284; C9803; J1100; J1200; J1885

== ENCOUNTER 2020-10-11 19:02 | Emergency (ER) | payer OTHER, MEDICAID, SELFPAY ==
[2020-10-11 19:14] VITALS: BP 126/79; PULSE 72; RESP 20; TEMP 37; O2SAT 96; BMI 41.9
[2020-10-11 22:44] LABS: Hematocrit 41.6 % (36-46); Hemoglobin 13.6 g/dL (12.0-16.0); Mean Corpuscular HGB Conc 32.7 % (30-36); Mean Corpuscular Hemoglobin 28.6 PG (26-34); Mean Corpuscular Volume 87.3 fL (80-100); Platelet Count 347 X10^3/uL (150-400); Red Blood Cell Count 4.76 X10^6/uL (4.0-5.2); Red Cell Distribution Width 13.8 % (11.6-14.8); White Blood Cell Count 16.1 X10^3/uL (4.5-11.0)
[2020-10-11 22:45] LABS: Add Manual Diff / Slide Review NO; Basophils Absolute Auto 0 /uL (0-100); Basophils Percent Auto 0.3 % (0-2); Eosinophils Absolute Auto 0 /uL (0-450); Eosinophils Percent Auto 0.2 % (2-4); Lymphocytes Absolute Auto 2100 /uL (1100-4500); Lymphocytes Percent Auto 12.9 % (25-40); Monocytes Absolute Auto 900 /uL (0-900); Monocytes Percent Auto 5.4 % (3-14); Neutrophils Absolute Auto 13100 /uL (1500-7000); Neutrophils Percent Auto 81.2 % (50-75)
[2020-10-11] MEDS: ONDANSETRON 4 MG/2 ML INJ IV (22:45)
[2020-10-11 22:53] LABS: Alanine Aminotransferase 46 IU/L (<35); Albumin 4.3 g/dL (3.5-5.0); Albumin Globulin Ratio 1.2 (1.0-2.8); Alkaline Phosphatase 106 U/L (38-126); Aspartate Aminotransferase 95 IU/L (14-36); BUN Creatinine Ratio 25.4 (6-22); Bilirubin Total 0.7 mg/dL (0.2-1.3); Blood Urea Nitrogen 17 mg/dL (7-17); Calcium 9.3 mg/dL (8.4-10.2); Carbon Dioxide 27 mmol/L (22-32); Chloride 101 mmol/L (98-107); Estimated Glomerular Filt Rate > 60.0 mL/min (>60); Globulin 3.7 g/dL (1.7-4.1); Glucose 106 mg/dL (70-100); HEMOLYSIS < 15 (0-50); Lipase 130 U/L (23-300); Potassium 4.1 mmol/L (3.4-5.1); Sodium 137 mmol/L (137-145)
--- NOTE | 2020-10-12 00:57 | ED.ABDPAIN ---
HPI - Abdominal Pain General Chief Complaint: Abdominal Pain Stated Complaint: abdominal pain, tight chest Time Seen by Provider: 10/12/20 00:56 Source: patient Mode of arrival: Wheelchair Limitations: no limitations History of Present Illness HPI narrative: This a 25-year-old female comes emergency department with complaint of abdominal particular in the epigastric periumbilical area that started yesterday. She states it radiates to her bilateral sides and back. She denies any fevers or chills. She has been nauseated and threw up 3 times. That started yesterday. Patient has not any diarrhea constipation she states she has had normal bowel movements today. No bright red blood or melena that she appreciated. She denies any urinary symptoms, no frequency, dysuria sense of urgency. She denies any vaginal bleeding or discharge. She has had kidney stones in the past but states this feels differently. She denies any other medical issues. Denies daily medications. No surgeries. No allergies. No tobacco, she had a peanut cold water yesterday. No illicit. She has a primary care in [place] but recently moved to the area. Related Data Previous Rx's Medication Instructions Recorded hydrocodone 5 mg-acetaminophen 325 1 tab PO Q4-6H PRN #10 tab 08/26/20 mg tablet ondansetron 4 mg disintegrating 4 mg PO TID-QID PRN #10 tab 08/26/20 tablet hydrocodone 5 mg-acetaminophen 325 1 tab PO Q6H PRN #10 tab 08/30/20 mg tablet ketorolac 10 mg tablet 10 mg PO Q6H PRN #14 tab 10/05/20 azithromycin 250 mg tablet See Rx Instructions .ROUTE 10/12/20 .COMPLEX #6 tab Allergies Allergy/AdvReac Type Severity Reaction Status Date / Time No Known Drug Allergies Allergy Verified 10/05/20 17:46 Review of Systems Review of Systems ROS Unobtainable: All systems reviewed & are unremarkable except as noted in HPI and below Patient History Social History Smoking Status: Never smoker Smoking Status: Never smoker alcohol intake frequency: holidays/special occasions only Substance Use Type: marijuana Exam Narrative Exam Narrative: GENERAL: Alert and oriented x three, female with BMI 42 in [id number] distress. HEENT: Head normocephalic, atraumatic, EOMI, pupils reactive, face symmetric, moist mucous membranes NECK: Supple, full range of motion CARDIOVASCULAR: Regular rate and rhythm without murmurs, rubs or gallops. RESPIRATORY: Breath sounds equal bilaterally, no wheezes rales or rhonchi. ABDOMEN: Soft, positive generalized tenderness greatest at the epigastric and left upper quadrant. Normoactive bowel sounds all 4 quadrants. No guarding or rebound, rigidity, no mass : No CVA tenderness EXTREMITIES: Normal range of motion, no clubbing or edema. Neurovascularly intact NEUROLOGICAL: Cranial nerves II through XII grossly intact. Moving all extremities SKIN: Warm, dry, no petechiae, no rashes or lesions. Initial Vital Signs Initial Vital Signs: Vital Signs Temperature 98.6 F 10/11/20 19:14 Pulse Rate 72 10/11/20 19:14 Respiratory Rate 20 10/11/20 19:14 Blood Pressure 126/79 10/11/20 19:14 Pulse Oximetry 96 10/11/20 19:14 Course Orders Ordered: Discontinued Medications Sodium Chloride (Normal Saline 0.9%) 1,000 mls @ 1,000 mls/hr IV BOLUS ONE Stop: 10/12/20 02:05 Last Admin: 10/12/20 01:44 Dose: 1,000 mls/hr Documented by: ARNAV Ceftriaxone Sodium 1,000 mg/ (Sodium Chloride) 100 mls @ 200 mls/hr IV NOW ONE Stop: 10/12/20 02:18 Last Infusion: 10/12/20 03:18 Dose: 0 mls/hr Documented by: Admin: 10/12/20 02:28 Dose: 200 mls/hr Documented by: ARNAV Ketorolac Tromethamine (Ketorolac 30 Mg/Ml Vial) 30 mg IV NOW ONE Stop: 10/12/20 01:07 Last Admin: 10/12/20 01:44 Dose: 30 mg Documented by: ARNAV Ondansetron HCl (Ondansetron 4 Mg/2 Ml Inj) 4 mg IV NOW ONE Stop: 10/11/20 19:19 Last Admin: 10/11/20 22:45 Dose: 4 mg Documented by: AFIA Ondansetron HCl (Ondansetron 4 Mg/2 Ml Inj) 4 mg IV NOW ONE Stop: 10/12/20 01:14 Last Admin: 10/12/20 01:44 Dose: 4 mg Documented by: ARNAV Ondansetron HCl (Ondansetron 4 Mg Odt Prepack) 1 bottle MISC SEEINSTR ONE Stop: 10/12/20 03:56 Last Admin: 10/12/20 04:11 Dose: 1 bottle Documented by: ARNAV Vital Signs Vital signs: Vital Signs - 8 hr 10/11/20 19:14 Temperature 98.6 F Pulse Rate 72 Respiratory Rate 20 Blood Pressure 126/79 Pulse Oximetry 96 MDM - Abdominal Pain Lab Data Result diagrams: 10/11/20 22:35 10/11/20 22:35 Labs: Lab Results 10/11/20 10/11/20 10/11/20 Range/Units 22:35 22:35 22:35 WBC 16.1 H (4.5-11.0) X10^3/uL RBC 4.76 (4.0-5.2) X10^6/uL Hgb 13.6 (12.0-16.0) g/dL Hct 41.6 (36-46) % MCV 87.3 (80-100) fL MCH 28.6 (26-34) PG MCHC 32.7 (30-36) % RDW 13.8 (11.6-14.8) % Plt Count 347 (150-400) X10^3/uL Neut % (Auto) 81.2 H (50-75) % Lymph % (Auto) 12.9 L (25-40) % [place] % (Auto) 5.4 (3-14) % Eos % (Auto) 0.2 L (2-4) % Baso % (Auto) 0.3 (0-2) % Neut # (Auto) 64175 H (7953-4471) /uL Lymph # (Auto) 2100 (7375-9815) /uL [place] # (Auto) 900 (0-900) /uL Eos # (Auto) 0 (0-450) /uL Baso # (Auto) 0 (0-100) /uL Sodium 137 (137-145) mmol/L Potassium 4.1 (3.4-5.1) mmol/L Chloride 101 (98-107) mmol/L Carbon Dioxide 27 (22-32) mmol/L BUN 17 (7-17) mg/dL Creatinine 0.67 (0.52-1.04) mg/dL Estimated GFR > 60.0 (>60) mL/min BUN/Creatinine Ratio 25.4 H (6-22) Glucose 106 H (70-100) mg/dL Calcium 9.3 (8.4-10.2) mg/dL Total Bilirubin 0.7 (0.2-1.3) mg/dL AST 95 H (14-36) IU/L ALT 46 H (<35) IU/L Alkaline Phosphatase 106 (38-126) U/L Total Protein 8.0 (6.3-8.2) g/dL Albumin 4.3 (3.5-5.0) g/dL Globulin 3.7 (1.7-4.1) g/dL Albumin/Globulin Ratio 1.2 (1.0-2.8) Lipase 130 (23-300) U/L Serum , Qual Negative (Negative) SARS-CoV-2 (PCR) (Negative) 10/12/20 Range/Units 02:34 WBC (4.5-11.0) X10^3/uL RBC (4.0-5.2) X10^6/uL Hgb (12.0-16.0) g/dL Hct (36-46) % MCV (80-100) fL MCH (26-34) PG MCHC (30-36) % RDW (11.6-14.8) % Plt Count (150-400) X10^3/uL Neut % (Auto) (50-75) % Lymph % (Auto) (25-40) % [place] % (Auto) (3-14) % Eos % (Auto) (2-4) % Baso % (Auto) (0-2) % Neut # (Auto) (5374-8535) /uL Lymph # (Auto) (1405-6323) /uL [place] # (Auto) (0-900) /uL Eos # (Auto) (0-450) /uL Baso # (Auto) (0-100) /uL Sodium (137-145) mmol/L Potassium (3.4-5.1) mmol/L Chloride (98-107) mmol/L Carbon Dioxide (22-32) mmol/L BUN (7-17) mg/dL Creatinine (0.52-1.04) mg/dL Estimated GFR (>60) mL/min BUN/Creatinine Ratio (6-22) Glucose (70-100) mg/dL Calcium (8.4-10.2) mg/dL Total Bilirubin (0.2-1.3) mg/dL AST (14-36) IU/L ALT (<35) IU/L Alkaline Phosphatase (38-126) U/L Total Protein (6.3-8.2) g/dL Albumin (3.5-5.0) g/dL Globulin (1.7-4.1) g/dL Albumin/Globulin Ratio (1.0-2.8) Lipase (23-300) U/L Serum , Qual (Negative) SARS-CoV-2 (PCR) Negative (Negative) Imaging Data CT scan - abdomen/pelvis: Radiologist's Impression: night read CT abd/pelvis- patchy airspace changes in left base could be pneumonia. ECG Data Interpretation: Sinus rhythm, rate of 65 OH 150 QRS of 100 and QTC 428. Incomplete right bundle branch. MDM Narrative Medical decision making narrative: This is a 25-year-old female comes emergency department with complaint of abdominal pain with vomiting that started today. Patient states she feels generally unwell. After fluids Zofran and Toradol she feels significantly better. CT did not show any clear changes on prelim but showed possible pneumonia on the left. Patient was started on oral antibiotics. Patient's labs were reviewed with her. Return precautions were discussed and all questions were answered. Discharge Plan Departure Patient Disposition: Home Clinical Impression: Pneumonia Instructions: DI for Pneumonia -- Adult Activity Restrictions/Additional Instructions: Follow-up with your physician in the next several days for recheck. You may take Zofran every 6 hours as needed for nausea. Take antibiotics until completely gone. You may take ibuprofen up to 800 mg every 8 hours and/or Tylenol 1000 mg every 8 hours as needed for pain. Please return for rapidly worsening symptoms, increasing shortness of breath, chest pain, persistent vomiting, new swelling in her extremities, lightheadedness or passing out or other new or concerning symptoms. Prescriptions: New azithromycin 250 mg tablet See Rx Instructions .ROUTE .COMPLEX Qty: 6 RF: 0 No Action hydrocodone-acetaminophen 5-325 mg tablet 1 tab PO Q4-6H PRN (Reason: pain) Qty: 10 RF: 0 ondansetron 4 mg tablet,disintegrating 4 mg PO TID-QID PRN (Reason: nausea and vomiting) Qty: 10 RF: 0 hydrocodone-acetaminophen 5-325 mg tablet 1 tab PO Q6H PRN (Reason: pain) Qty: 10 RF: 0 ketorolac 10 mg tablet 10 mg PO Q6H PRN (Reason: pain) Qty: 14 RF: 0 Stand Alone Forms: Work Release Note
--- NOTE | 2020-10-12 01:06 | DI.CT.S_ITS ---
PROCEDURE: CT ABDOMEN PELVIS W CON INDICATIONS: abdominal pain for 24 hours, epigastric worse/generalized TECHNIQUE: After the administration of intravenous contrast, axial sections acquired from the lung bases to the pubic symphysis. Coronal and sagittal reformats were performed. For radiation dose reduction, the following was used: automated exposure control, adjustment of mA and/or kV according to patient size. COMPARISON: [facility], CT, CT ABDOMEN PELVIS W CON, 08/25/2020, 23:53. FINDINGS: Image quality: Excellent. Lung bases: Patchy airspace opacities noted in the left lung base which could represent atelectasis or pneumonia. Heart: No significant findings. ABDOMEN: Liver: Unremarkable. Gallbladder: Gallbladder is mildly distended. Biliary ducts: Common bile duct is dilated to 1.3 centimeters. Mild intrahepatic biliary tree dilatation. Pancreas: Unremarkable. Spleen: Unremarkable. Adrenal Glands: Unremarkable. Kidneys and Ureters: Unremarkable. Stomach and Bowel: Stomach, small bowel loops, and colon are unremarkable. Appendix is normal. Peritoneum: No abnormal intraperitoneal fluid. No free air. Ventral Wall: No hernias. Abdominal Nodes: No retroperitoneal or mesenteric adenopathy by size criteria. Vessels: Aorta and inferior vena cava are normal in size. PELVIS: Pelvic Organs: Unremarkable. Bladder: Unremarkable. Pelvic Nodes: No enlarged lymph nodes. Miscellaneous: No hernias are seen. Bones: Unremarkable. IMPRESSION: 1. Gallbladder distention and biliary ductal dilatation concerning for biliary obstruction. Recommend correlation with laboratory data. If clinically indicated abdominal ultrasound and/or MRCP could be performed for additional evaluation. Trisha F2. Patchy airspace opacities in the left lung base which could represent atelectasis or pneumonia. Dictated by: Anne Antonio MD, PhD on 10/12/2020 at 7:27 Approved by: Anne Antonio MD, PhD on 10/12/2020 at 7:31
[2020-10-12 01:19] LABS: Pregnancy Test Serum,Qual Negative (Negative)
[2020-10-12] MEDS: SODIUM CHLORIDE 0.9% 1,000 ML 1000 ML IV (01:44)
[2020-10-12] MEDS: ONDANSETRON 4 MG/2 ML INJ IV (01:44)
[2020-10-12] MEDS: KETOROLAC 30 MG/ML VIAL IV (01:44)
[2020-10-12] MEDS: cefTRIAXone 1,000 MG in SODIUM CHLORIDE 0.9% 100 ML 200 ML IV (02:28)
[2020-10-12 02:53] LABS: COVID19 -Nasal RAPID Negative (Negative)
[2020-10-12] MEDS: ONDANSETRON 4 MG ODT PREPACK 1 BOTTLE MISC (04:11)
[2020-10-12 04:44] VITALS: BP 123/81; PULSE 87; RESP 20; O2SAT 98
== END 2020-10-12 04:45 | disposition home or self-care (01) ==
PROVIDERS: Emergency Provider Emergency Medicine
DX: J18.9 Pneumonia, unspecified organism (principal); R11.2 Nausea with vomiting, unspecified; Z20.822 Contact with and (suspected) exposure to COVID-19
CPT/HCPCS: 36415; 74177; 80053; 83690; 84703; 85025; 87635; 93005; 93010; 96365; 96375; 96376; 99284; C9803; J0696; J1885; J2405; Q9967

== ENCOUNTER 2020-10-27 23:00 | Observation (INO) | payer OTHER, MEDICAID, SELFPAY ==
[2020-10-27 23:21] VITALS: BP 124/82; PULSE 110; RESP 18; TEMP 37.1; O2SAT 100
--- NOTE | 2020-10-27 23:21 | DI.RAD.S_ITS ---
PROCEDURE: XR CHEST 1V INDICATIONS: Shortness of breath TECHNIQUE: One view of the chest was acquired. COMPARISON: [facility], , XR CHEST 1V, 10/05/2020, 18:47. [facility], CR, XR CHEST 1V, 08/24/2020, 17:52. FINDINGS: Surgical changes and devices: None. Lungs and pleura: Lungs are clear. No pleural effusions or pneumothorax. Mediastinum: Mediastinal contours appear normal. Heart size is normal. Bones and chest wall: No suspicious bony lesions. Overlying soft tissues appear unremarkable. IMPRESSION: Normal for age, source of current shortness of breath symptoms is not seen. Dictated by: Oracio Connell M.D. on 10/28/2020 at 8:23 Approved by: Oracio Connell M.D. on 10/28/2020 at 8:23
[2020-10-27 23:26] VITALS: PULSE 89; RESP 27; O2SAT 100
[2020-10-27] MEDS: SODIUM CHLORIDE 0.9% 1,000 ML 1000 ML IV (23:27)
[2020-10-27 23:30] VITALS: PULSE 99; RESP 26; O2SAT 99
--- NOTE | 2020-10-27 23:34 | ED_ITS ---
HPI - General Adult General Chief complaint: Shortness of Breath/Dyspnea Stated complaint: difficulty breathing Time Seen by Provider: 10/27/20 23:20 History of Present Illness HPI narrative: Patient is a 25-year-old female who is brought to the emergency department by her sister for evaluation of shortness of breath. It is reported that she was recently diagnosed with pneumonia. Was also reported that she was not given any antibiotics. Initially patient unable to provide any HPI. Patient's sister states that she found the patient on the couch at home short of breath. Related Data Previous Rx's Medication Instructions Recorded hydrocodone 5 mg-acetaminophen 325 1 tab PO Q4-6H PRN #10 tab 08/26/20 mg tablet ondansetron 4 mg disintegrating 4 mg PO TID-QID PRN #10 tab 08/26/20 tablet hydrocodone 5 mg-acetaminophen 325 1 tab PO Q6H PRN #10 tab 08/30/20 mg tablet ketorolac 10 mg tablet 10 mg PO Q6H PRN #14 tab 10/05/20 azithromycin 250 mg tablet See Rx Instructions .ROUTE 10/12/20 .COMPLEX #6 tab Allergies Allergy/AdvReac Type Severity Reaction Status Date / Time No Known Drug Allergies Allergy Verified 10/05/20 17:46 Review of Systems Review of Systems ROS Unobtainable: Unobtainable due to medical condition Patient History Medical History Pneumonia Social History Smoking Status: Never smoker Smoking Status: Never smoker alcohol intake frequency: holidays/special occasions only Substance Use Type: marijuana Exam Initial Vital Signs Initial Vital Signs: Vital Signs Temperature 98.8 F 10/27/20 23:21 Pulse Rate 110 H 10/27/20 23:21 Respiratory Rate 18 10/27/20 23:21 Blood Pressure 124/82 10/27/20 23:21 Pulse Oximetry 100 10/27/20 23:21 Const General: in distress and anxious HENMT Head: normal to inspection and normocephalic Eyes General: appearance normal, both eyes and all related structures Pupils: PERRL Neck Neck: normal visual inspection Chest Chest: normal inspection of the chest Resp Effort & Inspection: not labored and tachypneic Auscultation: clear to auscultation bilaterally Cardio Rate: tachycardic Rhythm: regular rhythm GI Palpation: soft Skin General: no rashes or lesions noted Neuro General: moves all extremities Other: Patient initially would not answer questions. She was able to stand from the wheelchair and get into bed. Was following commands. Extrem General: capillary refill normal Psych Appearance: disheveled Scores GCS [place] coma scale eye opening: Spontaneous [place] coma scale verbal response: Words [place] coma scale motor response: Obey commands [place] coma scale total score: 13 Course Orders Ordered: ED Orders 10/27/20 23:20 COVID19 -Nasal swab/Pre-Proc Stat Complete Blood Count AUTO DIFF Stat Comprehensive Metabolic Panel Stat Ethanol (ETOH) Stat Test Serum,Qual Stat Troponin & CK Cardiac Panel Stat 10/27/20 23:21 XR chest 1V Stat EKG-12 Lead Stat 10/28/20 00:47 US abdomen limited Stat 10/28/20 04:46 Consult to General Surgery Stat Sodium Chloride (Normal Saline 0.9%) 1,000 mls @ 125 mls/hr IV CONT EDELMIRA Morphine Sulfate (Morphine 4 Mg/Ml Inj) 4 mg IV Q2HR EDELMIRA Ondansetron HCl (Ondansetron 4 Mg/2 Ml Inj) 4 mg IV Q4HR PRN PRN Reason: Nausea And Vomiting Discontinued Medications Hydromorphone HCl (Hydromorphone 0.5 Mg Inj) 0.5 mg IV NOW ONE Stop: 10/28/20 00:48 Last Admin: 10/28/20 00:54 Dose: 0.5 mg Documented by: KAYKAY Sodium Chloride (Normal Saline 0.9%) 1,000 mls @ 1,000 mls/hr IV BOLUS ONE Stop: 10/28/20 00:24 Last Infusion: 10/28/20 00:28 Dose: 0 mls/hr Documented by: Admin: 10/27/20 23:27 Dose: 1,000 mls/hr Documented by: MASON Ketorolac Tromethamine (Ketorolac 30 Mg/Ml Vial) 15 mg IV NOW ONE Stop: 10/28/20 00:46 Last Admin: 10/28/20 00:54 Dose: 15 mg Documented by: KAYKAY Morphine Sulfate (Morphine 4 Mg/Ml Inj) 4 mg IV NOW ONE Stop: 10/28/20 02:42 Last Admin: 10/28/20 02:54 Dose: 4 mg Documented by: HGJANAN Vital Signs Vital signs: Vital Signs - 8 hr 10/27/20 23:21 10/27/20 23:26 10/27/20 23:30 Temperature 98.8 F Pulse Rate 110 H 89 99 H Respiratory Rate 18 27 H 26 H Blood Pressure 124/82 Pulse Oximetry 100 100 99 10/28/20 00:00 10/28/20 00:30 10/28/20 00:58 Temperature Pulse Rate 89 76 88 Respiratory Rate 29 H 20 15 Blood Pressure 107/79 Pulse Oximetry 100 100 100 10/28/20 01:00 10/28/20 01:30 Temperature Pulse Rate 90 83 Respiratory Rate 20 21 Blood Pressure 103/72 Pulse Oximetry 100 100 Medical Decision Making Medical Records Medical records reviewed: Yes I reviewed the patient's medical records. Lab Data Lab results reviewed: Yes I reviewed the patient's lab results. Result diagrams: 10/27/20 23:20 10/27/20 23:20 Labs: Lab Results 10/27/20 10/27/20 10/27/20 Range/Units 23:20 23:20 23:20 WBC 14.7 H (4.5-11.0) X10^3/uL RBC 4.80 (4.0-5.2) X10^6/uL Hgb 13.9 (12.0-16.0) g/dL Hct 41.6 (36-46) % MCV 86.8 (80-100) fL MCH 28.9 (26-34) PG MCHC 33.3 (30-36) % RDW 13.3 (11.6-14.8) % Plt Count 335 (150-400) X10^3/uL Neut % (Auto) 69.0 (50-75) % Lymph % (Auto) 23.9 L (25-40) % [place] % (Auto) 5.8 (3-14) % Eos % (Auto) 0.7 L (2-4) % Baso % (Auto) 0.6 (0-2) % Neut # (Auto) 28083 H (4304-1223) /uL Lymph # (Auto) 3500 (1086-9734) /uL [place] # (Auto) 900 (0-900) /uL Eos # (Auto) 100 (0-450) /uL Baso # (Auto) 100 (0-100) /uL Sodium 140 (137-145) mmol/L Potassium 3.9 (3.4-5.1) mmol/L Chloride 104 (98-107) mmol/L Carbon Dioxide 28 (22-32) mmol/L BUN 13 (7-17) mg/dL Creatinine 0.67 (0.52-1.04) mg/dL Estimated GFR > 60.0 (>60) mL/min BUN/Creatinine Ratio 19.4 (6-22) Glucose 92 (70-100) mg/dL Calcium 9.5 (8.4-10.2) mg/dL Total Bilirubin 0.3 (0.2-1.3) mg/dL AST 45 H (14-36) IU/L ALT 26 (<35) IU/L Alkaline Phosphatase 88 (38-126) U/L Total Creatine Kinase 32 (30-135) U/L CK-MB (CK-2) TNP CK-MB (CK-2) Rel Index TNP Troponin I < 0.012 (0.01-0.034) ng/mL Total Protein 7.9 (6.3-8.2) g/dL Albumin 4.3 (3.5-5.0) g/dL Globulin 3.6 (1.7-4.1) g/dL Albumin/Globulin Ratio 1.2 (1.0-2.8) Serum , Qual Negative (Negative) Ethyl Alcohol < 10 ( - 10) mg/dL SARS-CoV-2 (PCR) (Negative) 10/27/20 Range/Units 23:20 WBC (4.5-11.0) X10^3/uL RBC (4.0-5.2) X10^6/uL Hgb (12.0-16.0) g/dL Hct (36-46) % MCV (80-100) fL MCH (26-34) PG MCHC (30-36) % RDW (11.6-14.8) % Plt Count (150-400) X10^3/uL Neut % (Auto) (50-75) % Lymph % (Auto) (25-40) % [place] % (Auto) (3-14) % Eos % (Auto) (2-4) % Baso % (Auto) (0-2) % Neut # (Auto) (2247-0031) /uL Lymph # (Auto) (0382-8312) /uL [place] # (Auto) (0-900) /uL Eos # (Auto) (0-450) /uL Baso # (Auto) (0-100) /uL Sodium (137-145) mmol/L Potassium (3.4-5.1) mmol/L Chloride (98-107) mmol/L Carbon Dioxide (22-32) mmol/L BUN (7-17) mg/dL Creatinine (0.52-1.04) mg/dL Estimated GFR (>60) mL/min BUN/Creatinine Ratio (6-22) Glucose (70-100) mg/dL Calcium (8.4-10.2) mg/dL Total Bilirubin (0.2-1.3) mg/dL AST (14-36) IU/L ALT (<35) IU/L Alkaline Phosphatase (38-126) U/L Total Creatine Kinase (30-135) U/L CK-MB (CK-2) CK-MB (CK-2) Rel Index Troponin I (0.01-0.034) ng/mL Total Protein (6.3-8.2) g/dL Albumin (3.5-5.0) g/dL Globulin (1.7-4.1) g/dL Albumin/Globulin Ratio (1.0-2.8) Serum , Qual (Negative) Ethyl Alcohol ( - 10) mg/dL SARS-CoV-2 (PCR) Negative (Negative) Imaging Data Chest x-ray: Radiologist's Impression: No significant abnormalities US - abdomen: Radiologist's Impression: Cholelithiasis with considerable common bile duct dilation. ECG Data Attestation: I personally reviewed and interpreted this ECG as follows: Interpretation: Sinus tachycardia Ventricular rate 101 Normal axis Normal QRS QTC [address] T wave changes MDM Narrative Medical decision making narrative: Patient initially was in distress. She was tachypneic. Was not hypoxic. Was able to stand with some assistance from the wheelchair getting into bed did follow some commands but would not answer questions. Her lungs were clear. Was tachycardic. Her vital signs improved with time. During the course of her stay here in the emergency department she did provide some broken information to nursing staff and also myself. It appears that she started to have abdominal discomfort. Then vomited. Then started to have some chest discomfort and then had a panic attack because of this. There was also reports that she did smoke marijuana earlier today. She apparently smokes on a daily basis. There is no signs of trauma. During the c ourse of her stay once the apparent anxiety level improved was able to get a better exam and she did have upper abdominal discomfort. Review of her medical records show that she has been seen here several times over the past 60 days for abdominal discomfort. She has had [address] scans. Both of which were unremarkable except for dilation of her gallbladder. She has not had any further workup of her gallbladder to include ultrasound. She states that she was diagnosed with pneumonia. According to the last note here in the emergency department she was diagnosed with pneumonia based off of findings that were seen on a CT scan. It appears that there was a prescription for azithromycin given to her but she states that she was not given any prescription when she left the emergency department and did not realize that it potentially could have been electronically sent to her pharmacy. She has not been on any antibiotics. I do have a low suspicion of pneumonia based on her presentation today. An ultrasound of her gallbladder was obtained which does show cholelithiasis and also a dilated common bile duct. She does not have a Tavera sign in her LFTs and bilirubin and lipase today are unremarkable. She states she has had upper abdominal pain fairly consistently over the past week. And has had this discomfort for several weeks altogether. I did discuss the case with Dr. Laura alonzo with General surgery. We will admit for further evaluation of potential MRCP/HIDA scan. I did discuss this with the patient as well. She expressed understanding and agreement. Discharge Plan Departure Patient Disposition: Admitted as Observation Clinical Impression: Abdominal pain, Shortness of breath, Cholelithiasis Admit Date/Time: 10/28/20 04:46 Admit Provider: Armando Mckay
[2020-10-27 23:42] LABS: Alanine Aminotransferase 26 IU/L (<35); Albumin 4.3 g/dL (3.5-5.0); Albumin Globulin Ratio 1.2 (1.0-2.8); Alkaline Phosphatase 88 U/L (38-126); Aspartate Aminotransferase 45 IU/L (14-36); BUN Creatinine Ratio 19.4 (6-22); Bilirubin Total 0.3 mg/dL (0.2-1.3); Blood Urea Nitrogen 13 mg/dL (7-17); Calcium 9.5 mg/dL (8.4-10.2); Carbon Dioxide 28 mmol/L (22-32); Chloride 104 mmol/L (98-107); Creatine Kinase 32 U/L (30-135); Estimated Glomerular Filt Rate > 60.0 mL/min (>60); Ethanol (ETOH) < 10 mg/dL; Globulin 3.6 g/dL (1.7-4.1); Glucose 92 mg/dL (70-100); HEMOLYSIS < 15 (0-50); Potassium 3.9 mmol/L (3.4-5.1); Sodium 140 mmol/L (137-145); Total Protein 7.9 g/dL (6.3-8.2)
[2020-10-27 23:43] LABS: COVID19 -Nasal RAPID Negative (Negative)
[2020-10-27 23:45] LABS: Add Manual Diff / Slide Review NO; Basophils Absolute Auto 100 /uL (0-100); Basophils Percent Auto 0.6 % (0-2); Eosinophils Absolute Auto 100 /uL (0-450); Eosinophils Percent Auto 0.7 % (2-4); Hematocrit 41.6 % (36-46); Hemoglobin 13.9 g/dL (12.0-16.0); Lymphocytes Absolute Auto 3500 /uL (1100-4500); Lymphocytes Percent Auto 23.9 % (25-40); Mean Corpuscular HGB Conc 33.3 % (30-36); Mean Corpuscular Hemoglobin 28.9 PG (26-34); Mean Corpuscular Volume 86.8 fL (80-100); Monocytes Absolute Auto 900 /uL (0-900); Monocytes Percent Auto 5.8 % (3-14); Neutrophils Absolute Auto 10100 /uL (1500-7000); Platelet Count 335 X10^3/uL (150-400); Red Cell Distribution Width 13.3 % (11.6-14.8); White Blood Cell Count 14.7 X10^3/uL (4.5-11.0)
[2020-10-27 23:50] LABS: Pregnancy Test Serum,Qual Negative (Negative)
[2020-10-27 23:53] LABS: Troponin I < 0.012 ng/mL (0.01-0.034)
[2020-10-28] VITALS (26 sets, daily range): BP systolic 102–136; BP diastolic 58–83; PULSE 62–90; RESP 15–29; TEMP 35.7–37; O2SAT 94–100; BMI 41.0
--- NOTE | 2020-10-28 | PATH_ITS ---
[facility] Accession Number: [id number] . 01 Material submitted: . gallbladder - GALLBLADDER AND CONTENTS . 02 Diagnosis: Gallbladder, Cholecystectomy: Chronic cholecytitis with cholelithiasis. Negative for dysplasia and malignancy. [facility] 10/31/2020 1551 Local . 02 Electronically signed: . Ivon Mora MD, Pathologist NPI- [id number] . 01 Gross description: . The specimen is received in formalin, labeled gallbladder and contents, and consists of a 7.0 x 2.8 x 2.5 cm intact gallbladder with a 0.1 cm in diameter cystic duct. The serosa is wu-pink and smooth to focally ragged. Opening reveals green viscous bile with multiple wu-green, bosselated choleliths measuring 2.0 x 2.0 x 0.8 cm in aggregate. The mucosa is wu-green and velvety. The wall thickness measures 0.1 cm. Delinquency Counselor sections are submitted, to include the en face cystic duct margin, in cassette A1. ([id number]) /[facility] 10/29/2020 1113 Local . 02 Pathologist provided ICD-10: K80.60 . 02 CPT . 855115 Performed at: 01 [facility] [place] [facility] Cytology [address], [place], [place] [id number] MD Reid Kennedy MD Phone: [phone] Performed at: 02 [facility] [place] [address] [place], [place] [id number] MD Ivon Mora MD Phone: [phone]
--- NOTE | 2020-10-28 00:47 | DI.US.S_ITS ---
PROCEDURE: US ABDOMEN LIMITED INDICATIONS: RUQ PAIN TECHNIQUE: Real-time focused scanning was performed of the abdomen, with image documentation. COMPARISON: None. FINDINGS: The liver has a normal craniocaudad length and there is normal hepatic echotexture. The gallbladder contains numerous stones, nonmobile. The gallbladder wall, however, is not thickened at 2 mm. There is focal tenderness during sonographic palpation, however. The common hepatic duct and common bile duct respectively measure 1.1 cm and 1.4 cm. The pancreas visualized appears normal. IMPRESSION: Gallstones within the gallbladder lumen, tenderness during focal sonographic palpation over the gallbladder. The common hepatic duct and common bile duct are abnormally dilated and this raises concern for whether a distal common duct stone could be present. MR cholangiogram may be warranted, depending on the clinical status. Dictated by: Oracio Connell M.D. on 10/28/2020 at 9:56 Approved by: Oracio Connell M.D. on 10/28/2020 at 10:00
[2020-10-28] MEDS: HYDROMORPHONE 0.5 MG INJ IV (00:54)
[2020-10-28] MEDS: KETOROLAC 30 MG/ML VIAL 15 MG IV (00:54)
[2020-10-28] MEDS: MORPHINE 4 MG/ML INJ IV (02:54)
[2020-10-28] MEDS: SODIUM CHLORIDE 0.9% 1,000 ML 125 ML IV (05:34)
--- NOTE | 2020-10-28 06:37 | PC.NURSE ---
Patient admitted into room 210. Brought up from ED in bed, accompanied by GAS CUTTER. Oriented to room, call light given, bed in lowest position. Denied any questions.
--- NOTE | 2020-10-28 07:44 | DI.MRI.S_ITS ---
PROCEDURE: MR ABDOMEN WO/W CON INDICATIONS: dilated common duct TECHNIQUE: Coronal HASTE, axial 2D FLASH in- and [id number]; axial breath-hold T2 FSE. Dynamic axial VIBE during the administration of contrast; post-contrast coronal VIBE or 2D FLASH with fat saturation from the hepatic dome to the iliac crests. Optional diffusion weighted imaging and ADC may be performed. COMPARISON: [facility], CT, CT ABDOMEN PELVIS W CON, 10/12/2020, 1:13. [facility], US, US ABDOMEN LIMITED, 10/28/2020, 1:15. FINDINGS: Image quality: Excellent. Lung bases: No basal pleural effusions. Heart size is normal. Solid organs: Liver is normal in size and enhancement. Gallbladder shows no evidence of acute cholecystitis but there is a finding of multiple small 3-4 mm posterior layering gallstones within the gallbladder lumen. Biliary system within the liver is non dilated. The common hepatic duct and common bile duct are dilated as has been previously documented up to 14 mm. A distal common duct stone or mass is not seen. Pancreas is normal in morphology. Spleen is normal in size and enhancement. No adrenal nodules. Both kidneys demonstrate normal size and enhancement, without hydronephrosis. Nodes and vessels: No retroperitoneal or mesenteric adenopathy by size criteria. Aorta and inferior vena cava are normal in size. Bowel and peritoneum: Unenhanced bowel loops are normal in caliber. No free fluid. Bones and soft tissues: No ventral hernias. Bone marrow is normal in overall signal. IMPRESSION: Persistent finding of common hepatic duct and common bile duct dilatation to 14 mm in maximal diameter in the setting of gallbladder in place. The gallbladder contains multiple small posterior layering stones measuring approximately 3-4 mm, of a size that easily could transit into the cystic duct or common duct. Tapering of the common duct appears normal, a mass or common duct stone is not found. Please correlate with liver function tests to determine whether there is potential evidence of intermittent biliary colic and secondary common duct dilatation related to these stones. Findings discussed in detail with the ordering healthcare provider. Dictated by: Oracio Connell M.D. on 10/28/2020 at 13:47 Approved by: Oracio Connell M.D. on 10/28/2020 at 14:02
--- NOTE | 2020-10-28 09:22 | CM.IDA ---
Initial DCP Assessment Note Pt is a 25 yo female, resident of [place], arrives w/shortness of breath, this is patient's 5th ER visit, mara admission since August, recent h/o pneumonia and complaints of ongoing abd pain. PCP: None listed Payer: Robert TAMAYO Reviewed chart, met w/patient this morning to introduce role. Patient did not open her eyes during this visit, was able to answer questions appropriately. Patient lives w/her older sister Smita, who is currently taking care of patient's 3 yo. Patient is currently unemployed, use to work at [employer] until medical issues prohibited her working. Patient is not forthcoming w/additional information. 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 Will follow closely in case this changes before DC XANDER Viera Discharge Planning/Care Management CM Discharge Assessment Start: 10/28/20 09:19 Freq: Status: Active Protocol: Document 10/28/20 09:19 CARLINE (Rec: 10/28/20 09:22 CARLINE [id number]) Discharge Planning Assessment Assigned Compensation And Benefits Manager XANDER Garibay DPOA/Assigned Designee Name sister Borja Contact Information [phone] Advance Directives? No History Provided By Patient Household Members family Type of transporation used prior to Drives own vehicle admit Independent with ADL's Yes Is patient alert and oriented? Yes Barriers to Discharge No Comment at this time Discharge Plan Home Transportation Arrangement Family Referrals Initiated None needed Additional Comment At this time Whiteboard Updated in Patient Room with Yes name and ext. # of Compensation And Benefits Manager
--- NOTE | 2020-10-28 10:45 | PC.NURSE ---
Patient A/O x 3, groggy but responsive. Patient saline locked for MRI.
--- NOTE | 2020-10-28 11:15 | P.HP_ITS ---
History of Present Illness History of Present Illness Chief complaint: difficulty breathing Narrative: Patient is a woman with the multi week history of severe upper abdominal pain. Is accompanied by nausea and vomiting. She has been dry heaving. The patient is been in out of the ER 4 times. Studies were done that showed gallstones at this time. She also has a persistently dilated common bile duct at 14 mm. She has had no prior operations in never been jaundiced. Patient History Medical History Pneumonia Family & Social History Social History: household members family Safety & Behavioral: Feels Safe in Current Yes Environment Been Physically Hurt or No Threatened By a Person Tobacco & Substance use: Smoking Status Never smoker alcohol intake frequency holiday/special occasion Substance Use Type marijuana Meds Home Medications and Allergies Home Medications Medication Instructions Recorded Confirmed Type No Known Home Medications 10/28/20 10/28/20 History Allergies Allergy/AdvReac Type Severity Reaction Status Date / Time No Known Drug Allergies Allergy Verified 10/05/20 17:46 Review of Systems Review of Systems Narrative: Patient denies visual difficulties double vision pain arise earaches or sore throats. No cough or cold. She did have childhood asthma. Does not use any medication has not been bothered by some time. Patient has no tooth aches. No chest pain or heart problems. No murmurs. She has had a kidney stone on the left treated non operatively. She did have a procedure to remove it but she does not know what kind. Patient has no black or bloody bowel moveme nts no seizures or blackouts no anxiety or depression. Does not smoke or drink. Uses marijuana. Exam Vital Signs (past 8 hours): - 10/28/20 03:30 10/28/20 04:00 10/28/20 04:30 Temperature Pulse Rate 62 69 71 Respiratory Rate 24 23 21 Blood Pressure 112/58 L 102/60 107/62 Pulse Oximetry 98 97 97 10/28/20 05:00 10/28/20 05:25 10/28/20 07:55 Temperature 97.2 F L 98.6 F Pulse Rate 69 80 62 Respiratory Rate 26 H 18 18 Blood Pressure 110/76 136/83 125/69 Pulse Oximetry 100 98 97 Oxygen Delivery Method Room Air Oxygen Flow Rate 0 Narrative Exam Narrative: Cooperative in no apparent distress. Eyes are nonicteric. Pupils equal round reactive to light. Neck is supple. Lungs are clear to auscultation without rales or rhonchi. Equal to percussion. Heart regular rate and rhythm without murmur gallop. No bruit in the neck. 2+ pulses at the wrist. Abdomen is mildly protuberant but soft. No guarding. Tender in the upper abdomen. Patient is alert and oriented. Affect is a bit flat. This may be cultural. Objective Labs Result Diagrams: 10/27/20 23:20 10/27/20 23:20 Labs: Laboratory Results - last 24 hr 10/27/20 10/27/20 10/27/20 23:20 23:20 23:20 WBC 14.7 H RBC 4.80 Hgb 13.9 Hct 41.6 MCV 86.8 MCH 28.9 MCHC 33.3 RDW 13.3 Plt Count 335 Neut % (Auto) 69.0 Lymph % (Auto) 23.9 L [place] % (Auto) 5.8 Eos % (Auto) 0.7 L Baso % (Auto) 0.6 Neut # (Auto) 02740 H Lymph # (Auto) 3500 [place] # (Auto) 900 Eos # (Auto) 100 Baso # (Auto) 100 Sodium 140 Potassium 3.9 Chloride 104 Carbon Dioxide 28 BUN 13 Creatinine 0.67 Estimated GFR > 60.0 BUN/Creatinine Ratio 19.4 Glucose 92 Calcium 9.5 Total Bilirubin 0.3 AST 45 H ALT 26 Alkaline Phosphatase 88 Total Creatine Kinase 32 CK-MB (CK-2) TNP CK-MB (CK-2) Rel Index TNP Troponin I < 0.012 Total Protein 7.9 Albumin 4.3 Globulin 3.6 Albumin/Globulin Ratio 1.2 Serum , Qual Negative Ethyl Alcohol < 10 SARS-CoV-2 (PCR) 10/27/20 23:20 WBC RBC Hgb Hct MCV MCH MCHC RDW Plt Count Neut % (Auto) Lymph % (Auto) [place] % (Auto) Eos % (Auto) Baso % (Auto) Neut # (Auto) Lymph # (Auto) [place] # (Auto) Eos # (Auto) Baso # (Auto) Sodium Potassium Chloride Carbon Dioxide BUN Creatinine Estimated GFR BUN/Creatinine Ratio Glucose Calcium Total Bilirubin AST ALT Alkaline Phosphatase Total Creatine Kinase CK-MB (CK-2) CK-MB (CK-2) Rel Index Troponin I Total Protein Albumin Globulin Albumin/Globulin Ratio Serum , Qual Ethyl Alcohol SARS-CoV-2 (PCR) Negative Assessment & Plan Assessment and plan (1) Abdominal pain: Status: Acute (2) Cholelithiasis: Status: Acute Assessment & Plan narrative: Awaiting MRCP report for evaluation of the dilated common bile duct. Discussed laparoscopic cholecystectomy and possible cholangiogram with her. Risks of bleeding infection hernia bile leakage which would necessitate probably placement of a drain or a stent via ERCP and injury to internal organs or ducts which would require major operation to repair were all discussed with her. I also discussed hernia development. And restrictions after operation. I also discussed with her the consequences of removal of her gallbladder. All questions were answered. I informed her that either I or Dr. Garcia will be doing the procedure. Quality VTE Deep Vein Thrombosis/Pulmonary Embolism Present on Admission: No
--- NOTE | 2020-10-28 11:50 | P.OP.ENDO_ITS ---
Operative Date/Time/Diagnoses Date of procedure: 10/28/20
--- NOTE | 2020-10-28 11:50 | PM.OP.ENDO ---
Operative Date/Time/Diagnoses Date of procedure: 10/28/20
[2020-10-28] MEDS: CEFAZOLIN 1 GM VIAL 2 GM IV (16:10)
--- NOTE | 2020-10-28 16:29 | SUR.OPER ---
Supine on padded OR bed, head on pillow, arms secured on padded arm boards at <90 degrees abduction, legs uncrossed, safety belt at thigh, tape over blanket over lower legs.
[2020-10-28] MEDS: BUPIVACAINE 0.25% W/ EPI 30 ML VIAL INJ (16:41)
[2020-10-28] MEDS: LACTATED RINGERS 1,000 ML 42 ML IV (16:44)
[2020-10-28] MEDS: DEXTROSE 5%-0.45% NS 1,000 ML 100 ML IV (17:49)
--- NOTE | 2020-10-28 17:53 | PM.OP.1 ---
Operative Date/Time/Diagnoses Date of procedure: 10/28/20 Time of procedure: 15:30 Pre-op diagnosis: Acute Cholecystitis Post-op diagnosis: same Procedure & Clinicians Procedure: Laparoscopic cholecystectomy Same procedure as scheduled: Yes Indications: acute cholecystitis vs biliary cholic Surgeon: Kezia Garcia Click Yes if Unassisted: Yes Anesthesia Type: General Operative Notes Findings: slightly distended gallbladder, short cystic duct. Adhesive dz above liver Closure Type: primary Specimen(s): other (gallbladder) Estimated Blood Loss (mL): 15 Procedure in detail: Prep diagnosis: Acute cholecystitis versus recurrent biliary colic Postop diagnosis: Same Operative procedure: Laparoscopic cholecystectomy Surgeon: Casie Garcia MD Anesthetic: General with ET tube intubation along with local Findings: Distended gallbladder, otherwise normal gross appearance. Adhesive disease above the liver. Short cystic duct Procedure: Patient placed in a supine position. Prepped and draped in sterile fashion to expose her abdomen. Infraumbilical port site was placed using open technique and a 12 mm port. Insufflation began all the ports were placed under direct vision including a 10 mm port in the midepigastrium and 2 5 mm ports in the right lateral abdomen. Gallbladder was grasped and pushed cephalad for exposure. Cystic duct identified clipped once distally twice proximally and transected. Cystic artery was identified clipped once distally once proximally and transected. Gallbladder removed in the fossa bed electric cautery, hemostasis was achieved with cauterization. I then placed the gallbladder into an Endo-Catch bag and pulled out through the umbilical port site intact. There was no spillage of bile or stones throughout the procedure. Prior to removal port site irrigated and review the operative site to show no ongoing bleeding, and secure clips on the cystic duct. I then removed all ports and began closure. Closure consisted of interrupted 0 Vicryl for fascial closure of the infraumbilical port site. All other closures were skin only using a running 4-0 Vicryl. Patient was awakened, extubated, taken to recovery room stable condition. Needle, instrument, and sponge counts were all correct. Blood loss: 15 mL Specimen: Gallbladder Complications: none Post-operative Condition: stable Disposition: PACU
--- NOTE | 2020-10-28 18:01 | PC.NURSE ---
Addendum entered by Elizabeth Magaña R.N. 10/28/20 23:56: Pt reports chest pain improves with sitting up in bed versus semi-reclining in bed. Pt's sister is rooming in and provides verbal support, comfort and reassurance to pt. Pt is belching. Maalox administered and percocet crushed in applesauce as pt reports difficulty with swallowing pills. Addendum entered by Elizabeth Magaña R.N. 10/28/20 22:31: EKG reviewed by MACHINE IRONER, Deja. Normal EKG. Dr. Garcia was contacted by telephone and informed. Order for maalox obtained. Addendum entered by Elizabeth Magaña R.N. 10/28/20 22:22: This proposal manager writer enters room to reassess pt's level of comfort. Pt c/o chest pressure and states abdominal pain is okay. Denies any cardiac history. Blood pressure and pulse check and R.T. in to perform EKG. Addendum entered by Elizabeth Magaña R.N. 10/28/20 19:20: Pt is less drowsy and now requests pain medications. Was given one percocet as per emar with applesauce @ bedside. Original Note: Pt to room 210 from PACU drowsy, but easily rousable. Immediately on phone with family members. Pt rates abdominal incisions 7/10 pain and asks when can eat. Bowel tones are absent. Abdomen is soft. Instructed pt on proceeding slowly with diet when bowel tones are absent d/t risk of nausea/vomiting. Provided pt with popsicle, water and applesauce as per pt request. Room air 94%. Clear breath sounds to BL anterior sahu. BL calf scd's in place. Four allevyn gentle border dressings intact to abdomen. Pt does not remain awake for longer than several minutes @ a time. Will allow for pt to be more wakeful prior to administering narcotics.
[2020-10-28] MEDS: OXYCODONE/ACETAMINOPHEN 5/325 TABLET 1 TAB PO ×2 (19:17→23:10)
[2020-10-28] MEDS: MORPHINE 2 MG/ML INJ IV (21:57)
[2020-10-28] MEDS: MAG HYDROX/ALUM/SIMETH 30 ML UDC PO (22:40)
[2020-10-29] VITALS: BP 135/73; PULSE 72; RESP 20; TEMP 36.1; O2SAT 96
[2020-10-29] MEDS: MORPHINE 2 MG/ML INJ IV ×2 (03:45→08:35)
[2020-10-29] MEDS: DEXTROSE 5%-0.45% NS 1,000 ML 100 ML IV (03:49)
[2020-10-29 04:03] VITALS: BP 133/87; PULSE 74; RESP 16; TEMP 36.6; O2SAT 98
[2020-10-29] MEDS: OXYCODONE/ACETAMINOPHEN 5/325 TABLET 1 TAB PO (06:43)
[2020-10-29 08:00] VITALS: BP 138/87; PULSE 76; RESP 18; TEMP 36.3; O2SAT 98
[2020-10-29] MEDS: NAPROXEN 250 MG TABLET 500 MG PO (08:34)
--- NOTE | 2020-10-29 11:00 | PM.DS.1 ---
History of Present Illness History of Present Illness Date Patient Seen: 10/28/20 Date of Onset of Symptoms: 10/25/20 Chief complaint: difficulty breathing Narrative: Biliary colic verse biliary dyskenesia. Underwent Lap vamsi. No post op complications Discharge Providers Provider Date of admission: 10/28/20 04:46 Discharge Date: 10/29/20 Consults: 10/28/20 04:46 Consult to General Surgery Stat Comment: Consulting Provider: Armando Mckay Reason for consultation: admission Has provider been notified: Yes Discharge provider: Kezia Garcia MD Summary Hospital Course Discharge Diagnosis: Biliary cholic Hospital Course: Work up done most consistent with biliary cholic. Lap vamsi done. Patient improved and ready for discharge. Status at Discharge Cognitive/behavioral status at discharge: oriented Functional status at discharge: independent ambulation Overall status at discharge: patient is progressing back to baseline Time Spent with Patient Time spent: Less than 30 minutes Exam Vital Signs (past 8 hours): - 10/29/20 04:03 10/29/20 08:00 Temperature 97.8 F 97.3 F L Pulse Rate 74 76 Respiratory Rate 16 18 Blood Pressure 133/87 138/87 Pulse Oximetry 98 98 Oxygen Delivery Method Room Air Oxygen Flow Rate 0 Narrative Exam Narrative: abdomen is soft, incisional tenderness. dressing in place with umbilical dressing w small amount of blood. Objective Labs Result Diagrams: 10/27/20 23:20 10/27/20 23:20 [facility] Medical History Pneumonia Social History household members: family Smoking Status: Never smoker Discharge Assessment & Plan Assessment and Plan Assessment: Likely recurrent biliary colic Plan of Treatment: Laparoscopic cholecystectomy done w/o complication. Discharge home with 2-4 week follow up. Discharge Plan Discharge Plan Patient Disposition: Home Discharge orders & Medications Prescriptions: New naproxen 250 mg Tablet 500 mg PO BIDWM Qty: 30 RF: 0 oxycodone-acetaminophen 5-325 mg Tablet 1 tab PO Q4HR PRN (Reason: Pain, Moderate (4-6)) Qty: 10 RF: 0 Follow up/Referrals: Kezia Garcia MD [Physician] - Diet/Activity/Treatments Diet: Diet as Tolerated Activity: no lifting greater than 15 lbs for 4 weeks Cold/Heat Therapy: Ice pack to abdomen for 48 hrs Skin/Wound/Dressing Care Report to your healthcare provider any signs of infection, such as:: chills, fever, increased pain, unusual drainage and unusual redness Visit Report/Discharge Packet Instructions: DI for Laparoscopy, [facility]: Wound Care Discharge Data Attending Provider: Armando Mckay VTE Deep Vein Thrombosis/Pulmonary Embolism Present on Admission: No
--- NOTE | 2020-10-29 11:00 | PC.NURSE ---
Addendum entered by Mary Grace Samaniego R.N. 10/29/20 12:11: Patient given discharge information regarding f/u appointment, wound care, activity restrictions, diet and pain management with new prescriptions. Patient verbalized understanding but was simultaneously on phone during discharge instructions, sister was present and actively listening and asking questions. IV removed, patient tolerated. Eating lunch without complication. Original Note: Patient resting in bed this AM, c/o pain in R shoulder and right torso, belching, BS active x 4, abdomen soft and non-tender, dressings intact. Encouraged patient to ambulate. Patient ambulating in halls with aide assist. VSS. Patient request Morphine administration. PRN dose given. Patient saline locked, eating, c/o belching but no flatus at this time. Upon medication reassessment patient endorsed pain relief 3/10, currently sleeping. MD in to see patient prior to discharge.
--- NOTE | 2020-10-29 14:17 | CM.DPNOTE ---
DC Note POD#1 Lap Bia. Home w/family, no identified needs from this [employer] before DC JW
== END 2020-10-29 12:54 | disposition home or self-care (01) ==
LOC: ED 10-28 04:46 → AC 10-28 04:47
PROVIDERS: Surgery; Admitting Provider Specialist; Emergency Provider Emergency Medicine; Referring Provider Emergency Medicine; Visit Provider Specialist
PROC: 0FT44ZZ Resection of Gallbladder, Percutaneous Endoscopic Approach (ICD-10-PCS; CPT 47562; principal; 2020-10-28 16:15)
DX: K80.00 Calculus of gallbladder with acute cholecystitis without obstruction (principal); R06.02 Shortness of breath; E66.9 Obesity, unspecified; Z20.822 Contact with and (suspected) exposure to COVID-19
CPT/HCPCS: 47562; 36415; 71045; 74183; 76705; 80053; 80320; 82550; 84484; 84703; 85025; 87635; 93005; 96361; 96374; 96375; 96376; 99219; 99284; C9803; G0378; A9579; J0330; J0690; J1100; J1170; J1885; J2270; J2405; J2704; J3010

== ENCOUNTER 2020-11-05 14:34 | Emergency (ER) | payer OTHER, MEDICAID, SELFPAY ==
[2020-10-28 05:37] VITALS: BMI 41.0
[2020-11-05 14:52] VITALS: BP 136/81; PULSE 80; RESP 18; TEMP 36.1; O2SAT 97; BMI 40.3
--- NOTE | 2020-11-05 16:08 | ED_ITS ---
HPI - Recheck/Abnormal Lab/Rx <Keyur Hernández PA-C - Last Filed: 11/05/20 16:14> General Chief Complaint: Recheck/Abnormal Lab/Rx Stated Complaint: incision infected post surgery Time Seen by Provider: 11/05/20 16:02 Source: patient and family Mode of arrival: Family Vehicle Limitations: no limitations History of Present Illness HPI narrative: Jose presents today with chief complaint dressing coming off of 1 of her incision sites from her abdominal surgery. She reports that she had her gallbladder removed last week. She has an appointment with her surgeon for follow-up next week. She reports that it is still a bit painful in that area but denies any significant discharge, swelling, fever, redness or any other acute concerns or complaints. Related Data Previous Rx's Medication Instructions Recorded naproxen 250 mg tablet 500 mg PO BIDWM #30 tab 10/29/20 oxycodone-acetaminophen 5 mg-325 1 tab PO Q4HR PRN #10 tab 10/29/20 mg tablet Allergies Allergy/AdvReac Type Severity Reaction Status Date / Time No Known Drug Allergies Allergy Verified 11/05/20 14:52 Review of Systems <Keyur Hernández PA-C - Last Filed: 11/05/20 16:14> Review of Systems Narrative: As per HPI Patient History <Keyur Hernández PA-C - Last Filed: 11/05/20 16:14> Medical History Pneumonia Social History household members: family Smoking Status: Never smoker Smoking Status: Never smoker alcohol intake frequency: holidays/special occasions only Substance Use Type: marijuana Exam <Keyur Hernández PA-C - Last Filed: 11/05/20 16:14> Narrative Exam Narrative: Exam Narrative: Const General: cooperative, healthy appearing, comfortable, no acute distress, well developed and well groomed Nutritional Appearance: Elevated BMI Orientation: alert and oriented x3 HENMT Head: normal to inspection and atraumatic Ears: hearing grossly normal bilaterally Nose: external nose normal and nares normal Face and sinus: normal facial exam Neck Neck: normal visual inspection and supple Resp Effort & Inspection: normal respiratory effort, able to speak in complete sentences, no audible wheezes, not labored, no nasal flaring and no respiratory distress GI Nondistended, normal to inspection. Postsurgical incisions are grossly normal in appearance with no significant surrounding erythema. One incision site does not have the Steri-Strips in place. No significant discharge, erythema, or surrounding tenderness. Neuro General: alert, oriented x3, gait normal, tone normal and moves all extremities Cognition: normal cognition Speech: speech normal Gait: normal gait Psych Appearance: grossly normal and well kempt Mental Status: mental status grossly normal Speech and Movement: speech and movement normal Mood: congruent mood Affect: normal affect Initial Vital Signs Initial Vital Signs: Vital Signs Temperature 96.9 F L 11/05/20 14:52 Pulse Rate 80 11/05/20 14:52 Respiratory Rate 18 11/05/20 14:52 Blood Pressure 136/81 11/05/20 14:52 Pulse Oximetry 97 11/05/20 14:52 <Elisabet Villatoro MD - Last Filed: 11/06/20 09:19> Initial Vital Signs Initial Vital Signs: Vital Signs Temperature 96.9 F L 11/05/20 14:52 Pulse Rate 80 11/05/20 14:52 Respiratory Rate 18 11/05/20 14:52 Blood Pressure 136/81 11/05/20 14:52 Pulse Oximetry 97 11/05/20 14:52 Course <Keyur Hernández PA-C - Last Filed: 11/05/20 16:14> Vital Signs Vital signs: Vital Signs - 8 hr 11/05/20 14:52 Temperature 96.9 F L Pulse Rate 80 Respiratory Rate 18 Blood Pressure 136/81 Pulse Oximetry 97 <Elisabet Villatoro MD - Last Filed: 11/06/20 09:19> Vital Signs Vital signs: Vital Signs - 8 hr 11/05/20 14:52 Temperature 96.9 F L Pulse Rate 80 Respiratory Rate 18 Blood Pressure 136/81 Pulse Oximetry 97 MDM - Recheck/Abnormal Lab/Rx <Keyur Hernández PA-C - Last Filed: 11/05/20 16:14> MDM Narrative Medical decision making narrative: No evidence of infection at this time. She has an upcoming appointment with her surgeon. She was rebandaged, reassured and discharged. No need for further intervention at this time. Return precautions were discussed with the patient. Patient verbalizes understanding and agrees to plan and has no further concerns at this time. Thank you A [id number] system was used with the dictation of this note. Please disregard any spelling or grammatical errors. Discharge Plan Departure Patient Disposition: Home Clinical Impression: Encounter for wound re-check Activity Restrictions/Additional Instructions: It was nice to me to this afternoon. Please continue to monitor for any signs of infection which include increased redness, swelling, fever. He experience any of these please return for re-evaluation. Otherwise, please follow-up with your surgeon at your next scheduled appointment. Thank you Keyur Hernández PA-C Prescriptions: No Action naproxen 250 mg Tablet 500 mg PO BIDWM Qty: 30 RF: 0 oxycodone-acetaminophen 5-325 mg Tablet 1 tab PO Q4HR PRN (Reason: Pain, Moderate (4-6)) Qty: 10 RF: 0 Referrals: Selena Thompson MD [Primary Care Provider] - <Elisabet Villatoro MD - Last Filed: 11/06/20 09:19> [facility]: I was immediately available in the department for consultation throughout this patient's visit. I agree with documentation as above. Elisabet Villatoro MD
[2020-11-05 16:55] VITALS: BP 131/83; PULSE 69; RESP 18; O2SAT 97
--- NOTE | 2020-11-05 18:27 | PC.NURSE ---
DILEEP Baer assessed and dermabond wound. I did not see the wound.
== END 2020-11-05 16:55 | disposition home or self-care (01) ==
PROVIDERS: Emergency Provider Physician Assistant; PCP Student in an Organized Health Care Education/Training Program
DX: Z48.01 Encounter for change or removal of surgical wound dressing (principal)
CPT/HCPCS: 99281